=== PATIENT | female | born 1975 ===

== ENCOUNTER → 2020-01-24 12:43 | Outpatient (BNVA) | payer MEDICAID, SELFPAY | PROVIDERS: Visit Provider Obstetrics & Gynecology | DX: N83.292 Other ovarian cyst, left side (principal); Z97.5 Presence of (intrauterine) contraceptive device | CPT/HCPCS: 99213 ==

== ENCOUNTER 2020-02-08 08:57 | Outpatient (REF) | payer MEDICAID, SELFPAY ==
[2020-02-12 19:07] LABS: CA-125 24 U/mL (<35)
== END 2020-02-08 08:58 | disposition home or self-care (01) ==
LOC: HO.LAB 08:57
PROVIDERS: PCP Internal Medicine Geriatric Medicine; Visit Provider Obstetrics & Gynecology
DX: K80.20 Calculus of gallbladder without cholecystitis without obstruction (principal); F17.200 Nicotine dependence, unspecified, uncomplicated
CPT/HCPCS: 86304; 99204

== ENCOUNTER → 2020-03-05 08:48 | Outpatient (REF) | payer MEDICAID, SELFPAY ==
--- NOTE | 2020-03-05 | NM_ITS ---
BILIARY TRACT IMAGING STUDY CLINICAL INDICATION: Calculus of gallbladder without cholecystitis or obstruction. PROCEDURE: Scintillation camera images were obtained over the abdomen for an observation of 60 minutes following the intravenous administration of 5 millicuries technetium 99m Mebrofenin. COMPARISON: No previous biliary scan is available for comparison. Abdominal ultrasound dated 01/15/2020 is available for comparison.. FINDINGS: There is good concentration of activity in the liver by 5 minutes post injection. Biliary activity is well visualized by 13 minutes, and there is good visualization of small bowel activity by 35 minutes. The gallbladder is well visualized by 25 minutes. NM/NM hepatobiliary wo pharm IMPRESSION: Normal biliary scan. Visualization of the gallbladder is evidence of a patent cystic duct and strong evidence against the diagnosis of acute cholecystitis. The common bile duct is patent. Liver function appears normal.
== END ==
LOC: HO.NUCMED 08:48
PROVIDERS: PCP Internal Medicine Geriatric Medicine; Visit Provider Surgery
DX: K80.20 Calculus of gallbladder without cholecystitis without obstruction (principal)
CPT/HCPCS: 78226; A9537

== ENCOUNTER → 2020-05-13 10:01 | Outpatient (BNVA) | payer MEDICAID, SELFPAY | PROVIDERS: Visit Provider Internal Medicine Gastroenterology ==

== ENCOUNTER 2020-08-28 09:19 | Day surgery (SDC) | payer MEDICAID, SELFPAY ==
[2020-06-20 10:39] VITALS: BMI 28.8
[2020-06-20 12:41] VITALS: BMI 28.8
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
[2020-08-28 09:21] VITALS: BP 106/64; PULSE 74; RESP 18; TEMP 36.1; O2SAT 97
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
[2020-08-28] MEDS: Lactated Ringers 1,000 ML 100 ML IVCONT (09:43)
[2020-08-28 09:46] LABS: UPreg QC Valid YES; Urine Pregnancy NEGATIVE (NEGATIVE)
--- NOTE | 2020-08-28 10:24 | P.OP_ITS ---
Operative Note Operative Note Date of Service: 08/28/20 Narrative: Operative Information Procedure Description: EGD, Colonoscopy FLEXIBLE TRANSORAL UPPER GASTROINTESTINAL ENDOSCOPY AND COLONOSCOPY PROCEDURE NOTE UPPER ENDOSCOPY Consent: Indications for the procedure and potential complications of bleeding, perforation, reaction to medications and missed diagnosis were discussed with the patient and informed consent was obtained. Instrument: Olympus GIF H 190 J mid size upper endoscope Monitoring: Vital signs and clinical assessment, continuous EKG monitoring, Pulse oximetry, Carbon Dioxide monitoring and blood pressure monitoring were done throughout the procedure. Procedure: The patient was placed in the left lateral decubitis position and pre-procedure medications were administered and a bite block was placed. The endoscope was inserted into the mouth and advanced under direct vision to the third part of duodenum. A careful inspection was made as the upper endoscope was withdrawn including a retroflexed examination of the proximal stomach; Findings and interventions are described below. Findings: Larynx:normal Esophagus: GE junction at 35 cm, diaphragm hiatus at 35 cm, normal mucosa, random esophagus bx taken Stomach: Patchy erosive gastritis at antrum. Biopsies were obtained. Grade 2 flap valve on retroflexed examination of the cardia. Duodenum: Normal bulb and descending duodenum, bx taken Intervention: Biopsies as noted above COLONOSCOPY Instrument: Olympus variable stiffness pediatric scope 190L Colonoscopy Monitoring: Vital signs and clinical assessment, continuous EKG monitoring, Pulse oximetry, Carbon Dioxide monitoring and blood pressure monitoring were done throughout the procedure. Colon withdrawal time was 18 minutes. Procedure: The patient was placed in the left lateral decubitis position and pre-procedure medications were administered. After a digital rectal examination of the ano-rectum, the video colonoscope was inserted into the rectum and advanced through the colon to the cecum The colonoscope was slowly withdrawn in a retrograde panoramic fashion and the colon mucosa was carefully examined including a retroflexed view of the rectum. Findings and interventions are described below. Procedure Difficulty:hard due to looping and poor prep, colon somewhat redundant as well Findings: Terminal Ileum-not seen Cecum:normal Ascending Colon: normal Transverse Colon -normal Descending Colon:normal Sigmoid Colon: normal Rectum: Retroflexion with small internal hemorrhoids, grade I Anorectum - normal RANDOM COLON BX Taken Colon preparation: [place] Bowel Preparation Scale Right colon; 1 Transverse colon: 1 Left colon; 1 (0 = Unprepared colon segment with mucosa not seen due to solid stool that cannot be cleared. 1 = Portion of mucosa of the colon segment seen, but other areas of the colon segment not well seen due to staining, residual stool and/or opaque liquid. 2 = Minor amount of residual staining, small fragments of stool and/or opaque liquid, but mucosa of colon segment seen well. 3 = Entire mucosa of colon segment seen well with no residual staining, small fragments of stool or opaque liquid) Impression and Post Procedure Diagnosis: Endoscopy Findings: erosive gastritis Colonoscopy Findings: internal hemorrhoids poor prep Plan: Await Pathology results Repeat Colonoscopy in 6-12 months due to poor prep (compliance with diet and prep instructions needs reinforcement) High fiber diet leaflet avoid straining at stool, Above findings were reviewed with the patient and relevant handouts were provided if indicated.
--- NOTE | 2020-08-28 10:24 | P.BOP_ITS ---
Brief Operative Note Date of Service: 08/28/20 Pre-op diagnosis: abdo pain, post prandial urgency Post-op diagnosis: same Procedure: see op note Surgeon: Ernesto Burris MD Anesthesia: MAC Was an Priming Machine Operator used for this Procedure?: No Estimated blood loss (mL): 0 Condition: stable Disposition: PACU
[2020-08-28 11:31] VITALS: BP 124/77; PULSE 79; RESP 18; TEMP 36.4; O2SAT 100
[2020-08-28 11:48] VITALS: BP 122/65; PULSE 60; RESP 17; TEMP 36.4; O2SAT 100
== END 2020-08-28 12:34 | disposition home or self-care (01) ==
PROVIDERS: Nurse Practitioner; PCP Internal Medicine Geriatric Medicine; Visit Provider Internal Medicine Gastroenterology
PROC: (CPT 45380; principal; 2020-08-28 10:50)
DX: Z12.11 Encounter for screening for malignant neoplasm of colon (principal); K64.0 First degree hemorrhoids; K29.50 Unspecified chronic gastritis without bleeding; B96.81 Helicobacter pylori [H. pylori] as the cause of diseases classified elsewhere; Z90.81 Acquired absence of spleen; F17.210 Nicotine dependence, cigarettes, uncomplicated; Z79.899 Other long term (current) drug therapy; K44.9 Diaphragmatic hernia without obstruction or gangrene
CPT/HCPCS: 45380; 43239; 81025; 88305; 88342; J2405; J3010

== ENCOUNTER 2020-09-11 08:27 | Outpatient (REF) | payer MEDICAID, SELFPAY ==
--- NOTE | ~2020-09-11 | MM_ITS ---
EXAMINATION: MM SCREENING DIGITAL BREAST TOMOSYNTHESIS, BILATERAL CLINICAL INFORMATION: Screening. Asymptomatic. The lifetime risk of breast cancer based on the Tyrer-Cuzick Model is 7%. COMPARISON: Mammography: 03/30/2019, 11/02/2017 TECHNIQUE: Digital breast tomosynthesis is performed in both the craniocaudal and mediolateral oblique views along with computer-aided detection (CAD). Synthesized 2D images are generated from the tomosynthesis. FINDINGS: The breasts are heterogeneously dense, which may obscure small masses (ACR BI-RADS breast composition Category c). Breast tissue composition borders on average fibroglandular. There is fibronodular parenchymal pattern similar to prior studies. Smooth nodular asymmetry anterior medial right breast on CC view is stable from prior study. There is no interval mass or architectural abnormality or developing density. No suspicious calcifications. Again, there are grouped dermal calcifications left breast upper outer quadrant and left breast posterior lower inner quadrant. No significant changes from prior exams. MM/MM tomosynthesis screening BI IMPRESSION: No mammographic evidence of malignancy. ASSESSMENT: BI-RADS 2: Benign RECOMMENDATION: Routine annual mammography screening. This patient's information was entered into a reminder system with a target due date for their next mammogram.
== END 2020-09-11 08:28 | disposition home or self-care (01) ==
LOC: HO.MAMMO 08:27
PROVIDERS: Visit Provider Advanced Practice Midwife
DX: Z12.31 Encounter for screening mammogram for malignant neoplasm of breast (principal)
CPT/HCPCS: 77063; 77067

== ENCOUNTER → 2020-09-16 10:00 | Outpatient (BNVA) | payer MEDICAID, SELFPAY | PROVIDERS: PCP Internal Medicine Geriatric Medicine; Visit Provider Internal Medicine Gastroenterology ==

== ENCOUNTER 2021-01-12 09:13 | Outpatient (REF) | payer MEDICAID, SELFPAY ==
--- NOTE | ~2021-01-12 | US_ITS ---
EXAMINATION: US PELVIC AND TRANSVAGINAL CLINICAL INFORMATION: Left ovarian cyst. COMPARISON: Previous pelvic ultrasound December 2019 TECHNIQUE: Ultrasound of the pelvis is performed using both transabdominal and transvaginal transducers along with Doppler. Transvaginal imaging is performed due to inadequate visualization transabdominally. FINDINGS: The uterus is anteverted and measures 8.3 x 4.7 x 5.2 cm in dimension. There is an IUD in the uterus in satisfactory position. The endometrium does not appear thickened. There are small nabothian cysts in the cervix. No focal uterine lesion is seen. The right ovary measures 4.6 x 2.2 x 2.7 cm. There is a 1.9 x 1.2 x 1.7 cm complex right ovarian cyst with thickened echogenic wall and internal echoes. There is a second 2.4 x 1.7 x 2.6 cm question adnexal or paraovarian hypoechoic lesion probably representing a complex cyst with low-level internal echoes. The left ovary is normal-appearing and measures 2.6 x 2 x 2.5 cm. There is no fluid in the pelvis. US/US pelvic and transvaginal IMPRESSION: IUD in the uterus in satisfactory position. No left ovarian cyst seen. Two probable complex right ovarian or adnexal cysts, the largest measuring 2.6 x 2 x 2.5 cm.
== END 2021-01-12 09:14 | disposition home or self-care (01) ==
LOC: HO.HMGCX 09:13
PROVIDERS: PCP Internal Medicine Geriatric Medicine; Visit Provider Obstetrics & Gynecology
DX: N83.292 Other ovarian cyst, left side (principal)
CPT/HCPCS: 76830; 76856

== ENCOUNTER 2021-01-15 13:48 | Outpatient (REF) | payer MEDICAID, SELFPAY ==
[2021-01-16 02:48] LABS: CT PCR NOT DETECTED (Not Detect.); NG PCR NOT DETECTED (Not Detect.)
[2021-01-16 08:47] LABS: BV Int Neg Control Negative (Negative); BV Int Pos Control Positive (Positive)
[2021-01-20 17:06] LABS: HPV mRNA E6/E7 rflx Not Detected (Not Detected)
== END 2021-01-15 13:49 | disposition home or self-care (01) ==
LOC: HO.LAB 13:48
PROVIDERS: PCP Internal Medicine Geriatric Medicine; Visit Provider Advanced Practice Midwife
DX: Z01.411 Encounter for gynecological examination (general) (routine) with abnormal findings (principal); Z11.51 Encounter for screening for human papillomavirus (HPV); Z11.3 Encounter for screening for infections with a predominantly sexual mode of transmission; R10.2 Pelvic and perineal pain; N89.8 Other specified noninflammatory disorders of vagina; Z20.2 Contact with and (suspected) exposure to infections with a predominantly sexual mode of transmission
CPT/HCPCS: 81003; 87480; 87491; 87510; 87591; 87624; 87660; 88142

== ENCOUNTER → 2021-01-20 12:48 | Outpatient (BNVA) | payer MEDICAID, SELFPAY | PROVIDERS: Visit Provider Obstetrics & Gynecology ==

== ENCOUNTER 2021-01-22 15:53 | Outpatient (REF) | payer MEDICAID, SELFPAY ==
[2021-01-22 16:37] LABS: Imm Gran Abs Auto 0.03 X10*3/uL (0.00-0.03); Imm Gran Pct Auto 0.3 % (0.0-0.4); Mean Platelet Volume 9.8 fL (9.4-12.3); Neutrophils Percent Auto 46.1 % (45-73); SCAN SMEAR FLAG 1
[2021-01-22 16:42] LABS: Basophils Absolute Auto 0.1 X10*3/uL (0.0-0.2); Basophils Percent Auto 0.5 % (0-2); Eosinophils Absolute Auto 0.2 X10*3/uL (0.0-0.4); Eosinophils Percent Auto 1.5 % (0-4); Hematocrit 40.4 % (37-47); Hemoglobin 13.3 g/dl (12.0-16.0); Lymphocytes Absolute Auto 4.8 X10*3/uL (1.2-4.9); Lymphocytes Percent Auto 44.7 % (20-40); Mean Corpuscular HGB Conc 32.9 g/dl (31.0-35.0); Monocytes Absolute Auto 0.7 X10*3/uL (0.1-1.2); Monocytes Percent Auto 6.9 % (2-11); Neutrophils Absolute Auto 4.9 X10*3/uL (2.0-8.3); Platelet Count 376 X10*3/uL (160-400); Red Blood Count 4.44 X10*6/uL (4.20-5.50); White Blood Count 10.6 X10*3/uL (4.8-10.8)
[2021-01-22 16:48] LABS: MANUAL DIFF FLAG NO
[2021-01-22 16:59] LABS: Alanine Aminotransferase 13 U/L (0-31); Albumin Level 4.6 g/dL (3.5-5.0); Alkaline Phosphatase 91 U/L (39-117); Anion Gap 13 (12-20); Aspartate Amino Transferase 17 U/L (5-31); Bilirubin Total 0.9 mg/dL (0.0-1.0); Blood Urea Nitrogen 15 mg/dL (9-16); Calcium 9.4 mg/dL (8.4-10.2); Carbon Dioxide 24 mmol/L (22-29); Chloride 106 mmol/L (96-108); Estimated Glomerular Filt Rate > 60; Glucose Random 86 mg/dL (60-115); Sodium 139 mmol/L (135-145); Total Protein 7.5 g/dL (6.5-8.0)
[2021-01-22 17:18] LABS: TSH reflex Free T4 0.71 uIU/mL (0.32-4.0)
[2021-01-23 08:13] LABS: HBc Num1 0.07 S/CO (0.00-0.79); HIV AB/AG Nonreactive (Nonreactive); HIV Num 1 0.08 S/CO (0.00-0.99); Hepatitis B Core Antibody Nonreactive (Nonreactive); ~HepC Num1 0.05 S/CO (0.00-0.79); ~Hepatitis C Antibody Nonreactive (Nonreactive)
[2021-01-23 08:21] LABS: Syphilis Screen Nonreactive (Nonreactive)
[2021-01-24 05:11] LABS: CA-125 19 U/mL (<35)
[2021-01-28 07:21] LABS: IgA 180 mg/dL (47-310); IgG 1195 mg/dL (600-1640); IgM 25 mg/dL (50-300)
[2021-01-28 16:06] LABS: Histamine Plasma <1.5 ng/mL (< OR = 1.8)
[2021-01-29 10:06] LABS: Transglutaminase Ab IgG <1.0 U/mL; Transglutaminase IgA <1.0 U/mL
== END 2021-01-22 15:54 | disposition home or self-care (01) ==
LOC: HO.LAB 15:53
PROVIDERS: Internal Medicine Gastroenterology; Absent Provider Obstetrics & Gynecology; PCP Internal Medicine Geriatric Medicine; Visit Provider Advanced Practice Midwife
DX: N83.292 Other ovarian cyst, left side (principal); K59.01 Slow transit constipation; R10.12 Left upper quadrant pain; Z20.2 Contact with and (suspected) exposure to infections with a predominantly sexual mode of transmission
CPT/HCPCS: 36415; 80053; 82784; 83088; 83516; 83520; 84443; 85025; 86304; 86704; 86780; 86803; 87389

== ENCOUNTER 2021-02-11 15:28 | Outpatient (REF) | payer MEDICAID, SELFPAY ==
--- NOTE | ~2021-02-11 | XR_ITS ---
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 COMPARISON: 12/15/2016 TECHNIQUE: 2 views of the chest were obtained. FINDINGS: The lungs are well expanded. There is no focal consolidation, edema, or effusion. No pneumothorax. The cardiomediastinal silhouette is within normal limits. No acute osseous abnormality. XR/XR chest 2V IMPRESSION: Clear lungs.
== END 2021-02-11 15:29 | disposition home or self-care (01) ==
LOC: HO.XRAY 15:28
PROVIDERS: PCP Internal Medicine Geriatric Medicine; Visit Provider Internal Medicine Geriatric Medicine
DX: R76.12 Nonspecific reaction to cell mediated immunity measurement of gamma interferon antigen response without active tuberculosis (principal); Z22.7 Latent tuberculosis
CPT/HCPCS: 71046

== ENCOUNTER → 2021-03-05 14:58 | Outpatient (BNVA) | payer MEDICAID, SELFPAY | PROVIDERS: PCP Internal Medicine Geriatric Medicine; Visit Provider Surgery | DX: L72.0 Epidermal cyst (principal) | CPT/HCPCS: 99212 ==

== ENCOUNTER 2021-03-17 11:32 | Outpatient (REF) | payer MEDICAID, SELFPAY ==
[2021-03-18 11:52] LABS: H Pylori Breath Test Positive (Negative)
== END 2021-03-17 11:33 | disposition home or self-care (01) ==
LOC: HO.LNP 11:32
PROVIDERS: PCP Internal Medicine Geriatric Medicine; Referring Provider Internal Medicine Geriatric Medicine; Visit Provider Internal Medicine Gastroenterology
DX: Z01.818 Encounter for other preprocedural examination (principal)
CPT/HCPCS: 83013; 99212

== ENCOUNTER 2021-04-13 10:48 | Outpatient (REF) | payer MEDICAID, SELFPAY ==
--- NOTE | ~2021-04-13 | US_ITS ---
EXAMINATION: US PELVIS CLINICAL INFORMATION: Other ovarian cyst, unspecified side COMPARISON: Previous pelvic ultrasound December 2019 and December 2020 TECHNIQUE: Ultrasound of the pelvis is performed using both transabdominal and transvaginal transducers along with Doppler. Transvaginal imaging is performed due to inadequate visualization transabdominally. FINDINGS: The uterus is anteverted and measures 9.4 x 4.3 x 5.6 cm in dimension. There is an IUD in the uterus in satisfactory position. Endometrial thickness is normal measuring 0.5 cm. No focal uterine lesion is seen. There are nabothian cysts in the cervix. The right ovary measures 4.2 x 1.9 x 3.4 cm. There are several simple right ovarian cysts. The largest measures 1.5 x 1.3 x 1.2 cm. There is a 2.5 x 1.7 x 2.2 cm hypoechoic solid-appearing area. This is similar to December 2020 exam when this area measured 2.4 x 1.7 x 2.6 cm. This is a new finding compared to December 2019 exam. The left ovary is normal-appearing and measures 3.9 x 2.1 x 2.3 cm. There is no fluid in the pelvis. US/US pelvic and transvaginal IMPRESSION: IUD in the uterus in satisfactory position. Stable hypoechoic solid appearing lesion in the right ovary measuring 2.5 x 1.7 x 2.2 cm compared to recent exam December 2020.
== END 2021-04-13 10:49 | disposition home or self-care (01) ==
LOC: HO.HMGCX 10:48
PROVIDERS: PCP Internal Medicine Geriatric Medicine; Visit Provider Obstetrics & Gynecology
DX: N83.299 Other ovarian cyst, unspecified side (principal)
CPT/HCPCS: 76830; 76856

== ENCOUNTER → 2021-04-27 15:56 | Outpatient (BNVA) | payer MEDICAID, SELFPAY | PROVIDERS: PCP Internal Medicine Geriatric Medicine; Visit Provider Obstetrics & Gynecology ==

== ENCOUNTER 2021-06-03 13:45 | Outpatient (REF) | payer MEDICAID, SELFPAY ==
--- NOTE | ~2021-06-03 | MR_ITS ---
EXAMINATION: MRI PELVIS WITH AND WITHOUT CONTRAST CLINICAL INFORMATION: Reason for Exam [id number] - Other ovarian cyst, right side COMPARISON: 04/13/2021 TECHNIQUE: Multiple routine MRI sequences through the pelvis were obtained on a high-field 1.5 Halina MRI before and after the uneventful administration of 7.5 mL of Gadavist gadolinium-based IV contrast. FINDINGS: UTERUS: The uterus is anteverted and measures 8.8 x 4.4 x 6.1 cm ([id number] x anterior-posterior x transverse). In IUD is seen centrally in the endometrial canal. There is a suggestion of an arcuate uterine configuration with a smooth outer fundal contour and approximately 1 cm indentation of the endometrial canal at the fundus, for example series 7 image 17/28. Normal endometrial thickness, 0.4 cm. Junctional zone is normal in signal and thickness. No focal uterine mass seen. CERVIX: Numerous incidentally noted nabothian cysts are present. VAGINA: Normal; no mass seen. RIGHT OVARY: The right ovary is likely identified in series 7 image 14/28 and coronal image 13/28. The ovary itself measures 1.8 x 1.3 x 1.8 cm. Medial to the left ovary there 2 well-circumscribed lobular masses (or a bilobed single mass) measuring 2.0 x 1.4 x 1.4 cm and 2.7 x 1.5 x 2.5 cm. These are separate from the gas and stool-containing adjacent rectosigmoid colon. There is marked dark T2 signal throughout with intermediate T1 signal and minimal enhancement. LEFT OVARY: The left ovary measures 3.5 x 2.1 x 2.2 cm. Normal benign physiologic follicular cysts requiring no imaging follow-up are seen. No suspicious or concerning adnexal mass. KIDNEYS: Two normally positioned kidneys are seen. No hydronephrosis. BLADDER: Urinary bladder normal. PELVIC FREE FLUID: Trace physiologic free fluid is present. LYMPH NODES: No pathologically enlarged lymph nodes. OSSEOUS STRUCTURES: No acute or suspicious osseous abnormalities. MR/MR pelvis wo/w con IMPRESSION: Likely corresponding to the findings on prior ultrasound there are 2 adjacent well-circumscribed right adnexal masses (or a single bilobed mass) with marked dark T2 signal suggesting fibrous tissue. These could represent leiomyomata although no myomas are seen uterus. The appearance is typical for a solid fibrous adnexal mass such as a fibroma or fibrothecoma, less likely a cystadenoma fibroma.
== END 2021-06-03 13:46 | disposition home or self-care (01) ==
LOC: HO.MRI 13:45
PROVIDERS: Visit Provider Obstetrics & Gynecology
DX: N83.291 Other ovarian cyst, right side (principal)
CPT/HCPCS: 72197; A9585

== ENCOUNTER → 2021-06-04 15:55 | Outpatient (BNVA) | payer MEDICAID, SELFPAY | PROVIDERS: Visit Provider Obstetrics & Gynecology ==

== ENCOUNTER 2021-11-26 11:45 | Outpatient (REF) | payer MEDICAID, SELFPAY ==
--- NOTE | ~2021-11-26 | MM_ITS ---
EXAMINATION: MM SCREENING DIGITAL BREAST TOMOSYNTHESIS, BILATERAL CLINICAL INFORMATION: Screening. Asymptomatic. The lifetime risk of breast cancer based on the Tyrer-Cuzick Model is 8%. COMPARISON: Mammography: September 11, 2020 and studies dating back to October 11, 2014 TECHNIQUE: Digital breast tomosynthesis is performed in both the craniocaudal and mediolateral oblique views along with computer-aided detection (CAD). Synthesized 2D images are generated from the tomosynthesis. FINDINGS: The breasts are heterogeneously dense, which may obscure small masses (ACR BI-RADS breast composition Category c). There are no new significant masses, abnormal calcifications, or other abnormalities. There is stability of calcifications in density about the deep lateral aspect of the left breast. A few stable circumscribed densities are present. MM/MM tomosynthesis screening BI IMPRESSION: There are no significant changes from prior study. ASSESSMENT: BI-RADS 2: Benign RECOMMENDATION: Routine annual mammography screening. This patient's information was entered into a reminder system with a target due date for their next mammogram.
== END 2021-11-26 11:46 | disposition home or self-care (01) ==
LOC: HO.MAMMO 11:45
PROVIDERS: Visit Provider Internal Medicine Geriatric Medicine
DX: Z12.31 Encounter for screening mammogram for malignant neoplasm of breast (principal)
CPT/HCPCS: 77063; 77067

== ENCOUNTER → 2021-11-27 10:23 | Outpatient (BNVA) | payer MEDICAID, SELFPAY | PROVIDERS: PCP Internal Medicine Geriatric Medicine; Referring Provider Internal Medicine Geriatric Medicine; Visit Provider Surgery | DX: L72.0 Epidermal cyst (principal) | CPT/HCPCS: 99212 ==

== ENCOUNTER 2022-01-14 10:54 | Outpatient (REF) | payer MEDICAID, SELFPAY ==
[2022-01-14 10:56] VITALS: BMI 26.2
[2022-01-14 11:00] VITALS: BP 99/71; PULSE 78; RESP 16; TEMP 36.3; O2SAT 97
[2022-01-14 11:40] VITALS: BP 112/70; PULSE 78; RESP 16; O2SAT 97
--- NOTE | 2022-01-18 12:30 | P.OP_ITS ---
Operative Note Operative Note Date of Service: 01/14/22 Narrative: Preoperative diagnosis: Sebaceous cyst x2 of back Postoperative diagnosis: Same Procedure: Excision of sebaceous cyst x2 of back Surgeon: Blayne Cardona MD Meat Boner And Slicer: ELVIRA Novoa Anesthesia: Local lidocaine 2% with epinephrine Indications for procedure: 46-year-old female patient presenting with 2 small but painful epidermal inclusion cyst 1 located in the mid back in the midline and a 2nd located to the right of midline at approximately the same level. The midline lesion measured approximately 1.5 cm in the more lateral lesion on the right side measured approximately 1 cm. Neither lesion was acutely infected. Operative findings: 1.5 cm sebaceous cyst of mid back, 1 cm sebaceous cyst of right mid back. Specimen: Epidermal inclusion cyst (sebaceous cyst) x2 Estimated blood loss: 2 mL Complications: None Procedure details: Patient was brought to the minor surgery suite and placed in a prone position. The site of surgery confirmed by the patient in the back as noted above. After assuring informed consent the skin was prepped with Betadine and draped in a sterile fashion. Local anesthesia was then infiltrated around both lesions. Beginning in the midline lesion elliptical incision was then created oriented transversely. This was carried out through subcutaneous tissue and around the cyst wall. The cyst was then completely excised and passed off the table. This was subsequently sent to pathology for further examination. After assuring adequate hemostasis the dermis was reapproximated using interrupted 3-0 Polysorb sutures. Skin was then closed using interrupted 4-0 nylon sutures. Attention was then directed to the right mid back lesion again an elliptical incision was created oriented transversely. This was then carried down through subcutaneous tissue and around the cyst wall. The lesion was completely excised and sent to pathology for further examination. After assuring adequate hemostasis the skin was reapproximated using interrupted 4-0 nylon sutures. Sterile dressings consisting of 2 x 2 gauze and Tegaderm were then applied. The patient tolerated the procedure well. She was discharged to home in stable condition.
== END 2022-01-14 10:55 | disposition home or self-care (01) ==
LOC: HO.MS 10:54
PROVIDERS: PCP Internal Medicine Geriatric Medicine; Visit Provider Surgery
PROC: (CPT 11402; principal; 2022-01-14 11:00)
DX: D22.5 Melanocytic nevi of trunk (principal); L72.0 Epidermal cyst
CPT/HCPCS: 11402; 11401; 88304; 88305

== ENCOUNTER 2022-04-08 10:53 | Outpatient (REF) | payer MEDICAID, SELFPAY | END 2022-04-08 10:54 | disposition home or self-care (01) | LOC: HO.LNP 10:53 | PROVIDERS: Visit Provider Advanced Practice Midwife | DX: Z13.89 Encounter for screening for other disorder (principal) ==

== ENCOUNTER 2022-04-08 11:12 | Outpatient (REF) | payer MEDICAID, SELFPAY ==
[2022-04-08 13:10] LABS: Thyroid Stimulating Hormone 0.77 uIU/mL (0.32-4.0)
[2022-04-08 15:14] LABS: CT PCR NOT DETECTED (Not Detect.); NG PCR NOT DETECTED (Not Detect.)
[2022-04-09 05:16] LABS: Syphilis Screen Nonreactive (Nonreactive)
[2022-04-09 07:32] LABS: HBc Num1 0.07 S/CO (0.00-0.79); HIV AB/AG Nonreactive (Nonreactive); HIV Num 1 0.06 S/CO (0.00-0.99); Hepatitis B Core Antibody Nonreactive (Nonreactive); ~HepC Num1 0.04 S/CO (0.00-0.79); ~Hepatitis C Antibody Nonreactive (Nonreactive)
[2022-04-09 12:28] LABS: BV Int Neg Control Negative (Negative); BV Int Pos Control Positive (Positive)
[2022-04-11 01:00] LABS: Prolactin 6.8 ng/mL
[2022-04-11 01:03] LABS: DHEA Sulfate 223 mcg/dL (15-205)
== END 2022-04-08 11:13 | disposition home or self-care (01) ==
LOC: HO.LAB 11:12
PROVIDERS: PCP Internal Medicine Geriatric Medicine; Visit Provider Advanced Practice Midwife
DX: Z01.419 Encounter for gynecological examination (general) (routine) without abnormal findings (principal); Z11.4 Encounter for screening for human immunodeficiency virus [HIV]; L68.0 Hirsutism; Z20.2 Contact with and (suspected) exposure to infections with a predominantly sexual mode of transmission
CPT/HCPCS: 82627; 83498; 84146; 84402; 84403; 84443; 86704; 86780; 86803; 87389; 87480; 87491; 87510; 87591; 87660

== ENCOUNTER 2022-05-07 11:38 | Outpatient (REF) | payer MEDICAID, SELFPAY ==
[2022-05-14 13:08] LABS: Testosterone, Total 35 ng/dL (2-45)
== END 2022-05-07 11:39 | disposition home or self-care (01) ==
LOC: HO.LAB 11:38
PROVIDERS: PCP Internal Medicine Geriatric Medicine; Visit Provider Advanced Practice Midwife
DX: L68.0 Hirsutism (principal)
CPT/HCPCS: 36415; 84402; 84403

== ENCOUNTER → 2022-05-13 10:09 | Outpatient (BNVA) | payer MEDICAID, SELFPAY | PROVIDERS: PCP Internal Medicine Geriatric Medicine; Visit Provider Advanced Practice Midwife | DX: Z71.2 Person consulting for explanation of examination or test findings (principal); L68.0 Hirsutism | CPT/HCPCS: 99212 ==

== ENCOUNTER → 2022-07-30 16:13 | Outpatient (BNVA) | payer MEDICAID, SELFPAY | PROVIDERS: PCP Internal Medicine Geriatric Medicine; Visit Provider Internal Medicine Endocrinology, Diabetes & Metabolism | DX: L68.0 Hirsutism (principal) | CPT/HCPCS: 99202 ==

== ENCOUNTER 2022-10-06 18:14 | Emergency (ER) | payer OTHER, MEDICAID, SELFPAY ==
[2022-10-06 18:21] VITALS: BP 103/73; PULSE 73; RESP 18; TEMP 37.2; O2SAT 98; BMI 29.1
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
--- NOTE | 2022-10-06 18:26 | ECG_ITS ---
Test Reason : SOB,CHEST PAIN,DIZZINESS Blood Pressure : / mmHG Vent. Rate : 067 BPM Atrial Rate : 067 BPM P-R Int : 154 ms QRS Dur : 078 ms QT Int : 400 ms P-R-T Axes : 067 028 038 degrees QTc Int : 422 ms Normal sinus rhythm Normal ECG No previous ECGs available Referred By: Lenka Hebert Electronically Signed By:KIMBER NOEL MD
[2022-10-06 18:50] LABS: Basophils Absolute Auto 0.1 X10*3/uL (0.0-0.2); Basophils Percent Auto 0.5 % (0-2); Eosinophils Absolute Auto 0.2 X10*3/uL (0.0-0.4); Eosinophils Percent Auto 1.4 % (0-4); Hematocrit 38.9 % (37.0-47.0); Hemoglobin 12.7 g/dl (12.0-16.0); Imm Gran Abs Auto 0.04 X10*3/uL (0.00-0.03); Imm Gran Pct Auto 0.3 % (0.0-0.4); Lymphocytes Absolute Auto 5.3 X10*3/uL (1.2-4.9); MANUAL DIFF FLAG SCAN; Mean Corpuscular HGB Conc 32.6 g/dl (31.0-35.0); Mean Corpuscular Hemoglobin 30.2 pg (27.0-33.0); Mean Corpuscular Volume 92.4 fL (80.0-98.0); Mean Platelet Volume 9.7 fL (9.4-12.3); Monocytes Absolute Auto 0.9 X10*3/uL (0.1-1.2); Monocytes Percent Auto 7.2 % (2-11); Neutrophils Absolute Auto 6.4 x10*3/uL (2.0-8.3); Neutrophils Percent Auto 49.6 % (45-73); Platelet Count 395 X10*3/uL (160-400); Red Blood Count 4.21 X10*6/uL (4.20-5.50); Red Cell Distribution Width 12.1 % (11.0-16.0); SCAN SMEAR FLAG 1; White Blood Count 12.9 X10*3/uL (4.8-10.8)
[2022-10-06 19:06] LABS: Alanine Aminotransferase 10 U/L (0-31); Albumin Level 3.9 g/dL (3.5-5.0); Alkaline Phosphatase 94 U/L (39-117); Anion Gap 11 (12-20); Aspartate Amino Transferase 14 U/L (5-31); Bilirubin Direct 0.1 mg/dL (0.0-0.5); Bilirubin Total 0.4 mg/dL (0.0-1.0); Blood Urea Nitrogen 19 mg/dL (9-16); Calcium 9.3 mg/dL (8.4-10.2); Carbon Dioxide 24 mmol/L (22-29); Chloride 109 mmol/L (96-108); Creatinine Clr Calc Pharmacy 100.6; Estimated Glomerular Filt Rate > 60; Glucose Random 117 mg/dL (60-115); Magnesium 1.9 mg/dL (1.6-2.6); Potassium 3.9 mmol/L (3.3-5.1); Sodium 140 mmol/L (135-145); Total Protein 7.1 g/dL (6.5-8.0)
[2022-10-06 19:09] LABS: SLIDE REVIEW VERIFIED
[2022-10-06 19:34] VITALS: BP 112/76; PULSE 64
[2022-10-06 19:35] VITALS: BP 102/61; BP 114/66; PULSE 58; PULSE 61
[2022-10-06 19:37] VITALS: BP 116/72; PULSE 60; RESP 16; TEMP 36.2; O2SAT 98
--- NOTE | 2022-10-06 19:37 | MHC.EDTECH ---
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
== END 2022-10-06 20:49 | disposition home or self-care (01) ==
PROVIDERS: Physician Assistant; Emergency Provider Emergency Medicine; PCP Internal Medicine Geriatric Medicine
DX: F41.9 Anxiety disorder, unspecified (principal); R42 Dizziness and giddiness; R06.02 Shortness of breath
CPT/HCPCS: 36415; 80048; 80076; 83735; 85025; 93005; 99283; 99284

== ENCOUNTER 2023-04-29 15:52 | Outpatient (REF) | payer OTHER, SELFPAY | END 2023-04-29 15:53 | disposition home or self-care (01) | LOC: HO.HHCX 15:52 | PROVIDERS: Visit Provider Emergency Medicine | DX: M54.50 Low back pain, unspecified (principal); M79.18 Myalgia, other site; M54.2 Cervicalgia; Z91.81 History of falling | CPT/HCPCS: 72040; 72100; 72170; 72220 ==

== ENCOUNTER 2023-05-19 09:12 | Outpatient (AMB) | payer OTHER, SELFPAY ==
[2023-05-19 09:22] VITALS: BP 104/60; BMI 28.5
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
== END 2023-05-19 10:16 | disposition home or self-care (01) ==
LOC: HO.HWS 09:12
PROVIDERS: PCP Internal Medicine Geriatric Medicine; Visit Provider Advanced Practice Midwife
DX: N92.6 Irregular menstruation, unspecified (principal); Z01.419 Encounter for gynecological examination (general) (routine) without abnormal findings
CPT/HCPCS: 99396

== ENCOUNTER 2023-05-19 09:12 | Outpatient (REF) | payer OTHER, SELFPAY ==
[2023-05-19 13:43] LABS: CT PCR NOT DETECTED (Not Detect.); NG PCR NOT DETECTED (Not Detect.)
== END 2023-05-19 09:13 | disposition home or self-care (01) ==
LOC: HO.LNP 09:12
PROVIDERS: PCP Internal Medicine Geriatric Medicine; Visit Provider Advanced Practice Midwife
DX: Z01.419 Encounter for gynecological examination (general) (routine) without abnormal findings (principal); N92.6 Irregular menstruation, unspecified; Z20.2 Contact with and (suspected) exposure to infections with a predominantly sexual mode of transmission
CPT/HCPCS: 0353U; 81025

== ENCOUNTER → 2023-06-10 15:45 | Outpatient (BNV) | payer OTHER, SELFPAY | PROVIDERS: PCP Internal Medicine Geriatric Medicine; Visit Provider Radiology Diagnostic Radiology | DX: Z12.31 Encounter for screening mammogram for malignant neoplasm of breast (principal) | CPT/HCPCS: 77063; 77067 ==

== ENCOUNTER 2023-06-10 15:59 | Outpatient (REF) | payer OTHER, SELFPAY | END 2023-06-10 16:00 | disposition home or self-care (01) | LOC: HO.MAMMO 15:59 | PROVIDERS: PCP Internal Medicine Geriatric Medicine; Visit Provider Internal Medicine Geriatric Medicine | DX: Z12.31 Encounter for screening mammogram for malignant neoplasm of breast (principal) | CPT/HCPCS: 77063; 77067 ==

== ENCOUNTER → 2023-06-30 14:18 | Outpatient (BNVA) | payer OTHER, SELFPAY | PROVIDERS: PCP Internal Medicine Geriatric Medicine; Visit Provider Surgery ==

== ENCOUNTER 2023-06-30 14:19 | Outpatient (AMB) | payer OTHER, SELFPAY ==
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
[2023-06-30 14:43] VITALS: BP 127/81; PULSE 75; BMI 29.7
== END 2023-06-30 14:54 | disposition home or self-care (01) ==
PROVIDERS: PCP Internal Medicine Geriatric Medicine; Visit Provider Surgery
DX: L72.0 Epidermal cyst (principal)
CPT/HCPCS: 99213

== ENCOUNTER → 2023-07-15 09:34 | Outpatient (BNVA) | payer OTHER, SELFPAY | PROVIDERS: PCP Internal Medicine Geriatric Medicine; Visit Provider Surgery ==

== ENCOUNTER 2023-07-15 09:59 | Outpatient (REF) | payer OTHER, SELFPAY ==
[2023-07-15 11:28] LABS: HBc Num1 0.08 S/CO (0.00-0.79); HIV AB/AG Nonreactive (Nonreactive); HIV Num 1 0.05 S/CO (0.00-0.99); Hepatitis B Core Antibody Nonreactive (Nonreactive); ~HepC Num1 0.07 S/CO (0.00-0.79); ~Hepatitis C Antibody Nonreactive (Nonreactive)
[2023-07-15 11:29] LABS: Syphilis Screen Nonreactive (Nonreactive)
== END 2023-07-15 10:00 | disposition home or self-care (01) ==
LOC: HO.LAB 09:59
PROVIDERS: Visit Provider Advanced Practice Midwife
DX: Z11.4 Encounter for screening for human immunodeficiency virus [HIV] (principal); Z20.2 Contact with and (suspected) exposure to infections with a predominantly sexual mode of transmission
CPT/HCPCS: 36415; 86704; 86780; 86803; 87389

== ENCOUNTER 2023-07-19 09:10 | Outpatient (REF) | payer OTHER, SELFPAY ==
[2023-07-19 11:54] LABS: MANUAL DIFF FLAG NO
[2023-07-19 12:12] LABS: Basophils Absolute Auto 0.1 X10*3/uL (0.0-0.2); Basophils Percent Auto 0.6 % (0-2); Eosinophils Absolute Auto 0.1 X10*3/uL (0.0-0.4); Eosinophils Percent Auto 1.4 % (0-4); Hematocrit 43.4 % (37.0-47.0); Hemoglobin 13.9 g/dl (12.0-16.0); Imm Gran Abs Auto 0.02 X10*3/uL (0.00-0.03); Imm Gran Pct Auto 0.2 % (0.0-0.4); Lymphocytes Absolute Auto 3.2 X10*3/uL (1.2-4.9); Mean Corpuscular Hemoglobin 30.2 pg (27.0-33.0); Mean Corpuscular Volume 94.1 fL (80.0-98.0); Mean Platelet Volume 9.9 fL (9.4-12.3); Monocytes Absolute Auto 0.8 X10*3/uL (0.1-1.2); Monocytes Percent Auto 8.3 % (2-11); Neutrophils Absolute Auto 4.9 x10*3/uL (2.0-8.3); Neutrophils Percent Auto 54.5 % (45-73); Platelet Count 410 X10*3/uL (160-400); Red Blood Count 4.61 X10*6/uL (4.20-5.50); Red Cell Distribution Width 12.4 % (11.0-16.0)
[2023-07-19 12:22] LABS: Estimated Average Glucose 111 mg/dL; Hemoglobin A1c % 5.5 % (<6.0)
[2023-07-19 13:05] LABS: Anion Gap 12 (12-20); Blood Urea Nitrogen 16 mg/dL (9-16); Carbon Dioxide 27 mmol/L (22-29); Chloride 105 mmol/L (96-108); Estimated Glomerular Filt Rate > 60; Glucose Random 90 mg/dL (60-115); Potassium 3.9 mmol/L (3.3-5.1); Sodium 140 mmol/L (135-145)
[2023-07-19 13:06] LABS: Alanine Aminotransferase 13 U/L (0-31); Albumin Level 4.3 g/dL (3.5-5.0); Alkaline Phosphatase 104 U/L (39-117); Aspartate Amino Transferase 17 U/L (5-31); Bilirubin Direct 0.2 mg/dL (0.0-0.5); Bilirubin Total 0.6 mg/dL (0.0-1.0); Cholesterol 188 mg/dL (<200); HDL Cholesterol 41 mg/dL (>40); LDL Cholesterol Calculated 131 mg/dL (<100); Total Protein 7.6 g/dL (6.5-8.0); Triglycerides 83 mg/dL (<150)
== END 2023-07-19 09:11 | disposition home or self-care (01) ==
LOC: HO.HHCL 09:10
PROVIDERS: Visit Provider Internal Medicine Geriatric Medicine
DX: Z13.220 Encounter for screening for lipoid disorders (principal); Z13.6 Encounter for screening for cardiovascular disorders; Z13.1 Encounter for screening for diabetes mellitus; R53.83 Other fatigue; F32.A Depression, unspecified; Z90.721 Acquired absence of ovaries, unilateral
CPT/HCPCS: 36415; 80048; 80061; 80076; 83036; 85025

== ENCOUNTER 2023-07-20 09:31 | Outpatient (REF) | payer OTHER, SELFPAY | END 2023-07-20 09:32 | disposition home or self-care (01) | LOC: HO.HOSX 09:31 | PROVIDERS: Visit Provider Physical Medicine & Rehabilitation | DX: Z13.89 Encounter for screening for other disorder (principal) ==

== ENCOUNTER 2023-07-28 15:52 | Outpatient (AMB) | payer OTHER, SELFPAY ==
[2023-07-28 15:54] VITALS: BP 98/70; PULSE 95; BMI 29.6
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
== END 2023-07-28 16:30 | disposition home or self-care (01) ==
PROVIDERS: PCP Internal Medicine Geriatric Medicine; Visit Provider Internal Medicine Endocrinology, Diabetes & Metabolism
DX: L68.0 Hirsutism (principal)
CPT/HCPCS: 99213

== ENCOUNTER → 2023-07-28 15:52 | Outpatient (BNVA) | payer OTHER, SELFPAY | PROVIDERS: PCP Internal Medicine Geriatric Medicine; Visit Provider Internal Medicine Endocrinology, Diabetes & Metabolism ==

== ENCOUNTER 2023-08-31 13:23 | Day surgery (SDC) | payer OTHER, SELFPAY ==
[2023-08-31 13:24] VITALS: BP 132/72; PULSE 77; RESP 19; TEMP 36.7; O2SAT 97; BMI 30.3
--- NOTE | 2023-08-31 14:10 | P.OP_ITS ---
Operative Note Operative Note Date of Service: 08/31/23 Narrative: Preoperative diagnosis: Lipoma midback, epidermal inclusion cyst upper mid back Postoperative diagnosis: Same Procedure: Excision of lipoma midback and epidermal inclusion cyst upper mid back Surgeon: Blayne Cardona MD Tent Worker: None Anesthesia: Lidocaine 1% with epinephrine Indications for procedure: 48-year-old female presenting with a palpable soft tissue mass located in the mid back measuring approximately 3 cm in diameter. Reports pain when the lesion is palpated open laying on her back. In addition she has an epidermal inclusion cyst which is causing discomfort located just above this measuring approximately 1.5 cm in diameter. Operative findings: 3 cm lipoma of the midback; 1.5 cm epidermal inclusion cyst without evidence of infection. Specimen: Lipoma mid back, epidermal inclusion cyst upper mid back Estimated blood loss: Less than 2 mL Complications: None Procedure details: Patient was brought to the OR minor surgery suite and placed in a prone position. The site of surgery was confirmed by the patient in the mid back and upper mid back. After assuring informed consent the skin was prepped with Betadine and draped in a sterile fashion. Local anesthesia was then infiltrated around both lesions. Beginning at the lipoma a midline incision was made in longitudinal fashion and carried out through subcutaneous tissue up to the lipoma. A Metzenbaum scissor was then used to excise the lesion from the surrounding subcutaneous tissue. This was passed off the table and sent to pathology for further examination. Wounds were then irrigated with saline solution and suctioned dry. Dermis was then reapproximated using interrupted 3-0 Polysorb suture. Skin was closed using a running subcuticular 4-0 Polysorb suture. Attention was then directed to the upper mid back epidermal inclusion cyst. Elliptical incision in a longitudinal fashion was then created around the cyst wall. This was carried down into the subcutaneous tissue and around the cyst wall. The lesion was excised and sent to pathology for further examination. Wounds were irrigated with saline solution and suctioned dry. Dermis was then reapproximated using interrupted 3-0 Polysorb sutures. Skin was closed using a running subcuticular 4-0 Polysorb suture. Sterile dressings consisting of Steri-Strips, 2 x 2 gauze and Tegaderm were then applied. The patient tolerated the procedure well and was discharged to home in stable condition.
== END 2023-08-31 13:24 | disposition home or self-care (01) ==
LOC: HO.SSS 11-03 08:20
PROVIDERS: PCP Internal Medicine Geriatric Medicine; Visit Provider Surgery
PROC: (CPT 21931; principal; 2023-08-31 13:30)
PROC: (CPT 21931; 2023-08-31 13:30)
DX: D17.1 Benign lipomatous neoplasm of skin and subcutaneous tissue of trunk (principal); L72.0 Epidermal cyst
CPT/HCPCS: 21931; 11402; 88304

== ENCOUNTER → 2023-08-31 13:23 | Outpatient (BNV) | payer OTHER, SELFPAY | PROVIDERS: PCP Internal Medicine Geriatric Medicine; Visit Provider Surgery | DX: D17.1 Benign lipomatous neoplasm of skin and subcutaneous tissue of trunk (principal); L72.0 Epidermal cyst | CPT/HCPCS: 11402; 21931 ==

== ENCOUNTER 2023-09-07 09:40 | Outpatient (AMB) | payer OTHER, SELFPAY ==
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
[2023-09-07 09:45] VITALS: BMI 30.3
== END 2023-09-07 10:14 | disposition home or self-care (01) ==
PROVIDERS: PCP Internal Medicine Geriatric Medicine; Visit Provider Physical Medicine & Rehabilitation
DX: S32.2XXA Fracture of coccyx, initial encounter for closed fracture (principal)
CPT/HCPCS: 99204

== ENCOUNTER → 2023-09-07 09:40 | Outpatient (BNVA) | payer OTHER, SELFPAY | PROVIDERS: PCP Internal Medicine Geriatric Medicine; Visit Provider Physical Medicine & Rehabilitation ==

== ENCOUNTER 2023-09-09 11:27 | Outpatient (AMB) | payer OTHER, SELFPAY ==
[2023-09-09 11:27] VITALS: BP 108/58; PULSE 87; BMI 30.3
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
== END 2023-09-09 11:42 | disposition home or self-care (01) ==
LOC: HO.HGS 11:27
PROVIDERS: PCP Internal Medicine Geriatric Medicine; Visit Provider Surgery
DX: D17.9 Benign lipomatous neoplasm, unspecified (principal)
CPT/HCPCS: 99024

== ENCOUNTER → 2023-09-09 11:27 | Outpatient (BNVA) | payer OTHER, SELFPAY | PROVIDERS: PCP Internal Medicine Geriatric Medicine; Visit Provider Surgery ==

== ENCOUNTER 2023-10-17 16:54 | Outpatient (REF) | payer OTHER, SELFPAY ==
--- NOTE | ~2023-10-17 | XR_ITS ---
EXAMINATION: XR SACRUM AND COCCYX CLINICAL INFORMATION: Coccygeal fracture status-post fall 6 months prior. COMPARISON: CT pelvis dated 10/17/2023; sacral and coccygeal radiographs dated 04/30/2023. TECHNIQUE: 3 frontal and lateral views of the sacrum and coccyx were obtained. FINDINGS: There are no fractures. A stable mid coccygeal diastases is noted. No bone, joint or soft tissue abnormality is demonstrated. XR/XR sacrum coccyx min 2V IMPRESSION: Unchanged examination, with a stable mid coccygeal diastases noted. No fracture is seen.
--- NOTE | ~2023-10-17 | CT_ITS ---
EXAMINATION: CT PELVIS WITHOUT CONTRAST CLINICAL INFORMATION: Coccygeal fracture. COMPARISON: Sacral radiographs dated 10/17/2023. TECHNIQUE: Helical scanning was performed with submillimeter collimation through the pelvis. Sagittal and coronal multiplanar 2-D reconstructions were obtained. This CT examination was performed using dose optimization techniques as appropriate, variously including the following: *Automated exposure control *Adjustment of mA and/or kV according to patient size (this includes techniques or standardized protocols for targeted exams where dose is matched to indication/reason for exam; i.e. extremities or head) *Use of iterative reconstruction technique DLP: 491 mGy-cm FINDINGS: PELVIS: Included bowel loops are unremarkable. There is a moderately large stool burden, suggesting possible constipation. No obstruction, free intraperitoneal air or abscess is seen. There is no diverticulosis. The vermiform appendix is unremarkable. The urinary bladder is decompressed and unremarkable. There is a dominant 4.9 x 4.8 cm left adnexal simple cyst. No pelvic lymphadenopathy is seen. There is no umbilical or inguinal hernia defect. OSSEOUS STRUCTURES: There is a chronic-appearing mid coccygeal segment diastases (5:104 and 4:114). At L5-S1, there is a 5 mm retrolisthesis. The hip joints are well-maintained. CT/CT pelvis wo IV con IMPRESSION: 1. There is a chronic-appearing mid coccygeal diastases. No convincing acute fracture is seen. Please correlate clinically. 2. A 4.9 cm dominant left adnexal simple cyst is seen. This is a benign functional cyst, and no follow-up imaging is recommended. 3. No pelvic mass, free fluid or lymphadenopathy is seen.
== END 2023-10-17 16:55 | disposition home or self-care (01) ==
LOC: HO.CT 16:54
PROVIDERS: PCP Internal Medicine Geriatric Medicine; Visit Provider Physical Medicine & Rehabilitation
DX: S32.2XXA Fracture of coccyx, initial encounter for closed fracture (principal)
CPT/HCPCS: 72192; 72220

== ENCOUNTER 2024-01-24 09:09 | Outpatient (REF) | payer OTHER, SELFPAY ==
[2024-01-24 11:05] LABS: MANUAL DIFF FLAG NO
[2024-01-24 11:22] LABS: Basophils Percent Auto 0.4 % (0-2); Eosinophils Absolute Auto 0.1 X10*3/uL (0.0-0.4); Eosinophils Percent Auto 1.3 % (0-4); Hematocrit 40.6 % (37.0-47.0); Hemoglobin 13.1 g/dl (12.0-16.0); Imm Gran Abs Auto 0.06 X10*3/uL (0.00-0.03); Imm Gran Pct Auto 0.5 % (0.0-0.4); Lymphocytes Absolute Auto 2.7 X10*3/uL (1.2-4.9); Mean Corpuscular HGB Conc 32.3 g/dl (31.0-35.0); Mean Corpuscular Hemoglobin 30.5 pg (27.0-33.0); Mean Corpuscular Volume 94.6 fL (80.0-98.0); Mean Platelet Volume 9.6 fL (9.4-12.3); Monocytes Absolute Auto 0.9 X10*3/uL (0.1-1.2); Monocytes Percent Auto 8.3 % (2-11); Neutrophils Absolute Auto 7.3 x10*3/uL (2.0-8.3); Neutrophils Percent Auto 65.5 % (45-73); Platelet Count 411 X10*3/uL (160-400); Red Blood Count 4.29 X10*6/uL (4.20-5.50); Red Cell Distribution Width 13.1 % (11.0-16.0); White Blood Count 11.1 X10*3/uL (4.8-10.8)
[2024-01-24 11:30] LABS: Alanine Aminotransferase 14 U/L (0-31); Albumin Level 3.9 g/dL (3.5-5.0); Alkaline Phosphatase 81 U/L (39-117); Anion Gap 12 (12-20); Aspartate Amino Transferase 14 U/L (5-31); Bilirubin Total 0.6 mg/dL (0.0-1.0); Blood Urea Nitrogen 13 mg/dL (9-16); Calcium 9.1 mg/dL (8.4-10.2); Carbon Dioxide 25 mmol/L (22-29); Chloride 107 mmol/L (96-108); Estimated Glomerular Filt Rate > 60; Glucose Random 96 mg/dL (60-115); Potassium 3.7 mmol/L (3.3-5.1); Sodium 140 mmol/L (135-145); Total Protein 6.8 g/dL (6.5-8.0)
== END 2024-01-24 09:10 | disposition home or self-care (01) ==
LOC: HO.HHCL 09:09
PROVIDERS: Referring Provider Internal Medicine Endocrinology, Diabetes & Metabolism; Visit Provider Internal Medicine
DX: L40.3 Pustulosis palmaris et plantaris (principal)
CPT/HCPCS: 36415; 80053; 85025

== ENCOUNTER 2024-02-10 10:28 | Outpatient (REF) | payer OTHER, SELFPAY ==
[2024-02-12 03:56] LABS: HBS Num1 276.05 mIU/mL (0-7.99); Hepatitis A Antibody IgM 0.29 Index (0-0.79); Hepatitis B Core Antibody Nonreactive (Nonreactive); Hepatitis B Surface Antigen Negative (Negative); ~HepC Num1 0.07 S/CO (0.00-0.79); ~Hepatitis A Antibody IgM Nonreactive (Nonreactive); ~Hepatitis B Surface Antibody REACTIVE (Nonreactive); ~Hepatitis C Antibody Nonreactive (Nonreactive)
== END 2024-02-10 10:29 | disposition home or self-care (01) ==
LOC: HO.HHCL 10:28
PROVIDERS: Visit Provider Internal Medicine
DX: L40.3 Pustulosis palmaris et plantaris (principal)
CPT/HCPCS: 36415; 86704; 86706; 86709; 86803; 87340

== ENCOUNTER 2024-02-17 08:52 | Outpatient (AMB) | payer OTHER, SELFPAY ==
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
[2024-02-17 08:59] VITALS: BP 102/60; BMI 30.3
== END 2024-02-17 09:29 | disposition home or self-care (01) ==
PROVIDERS: PCP Internal Medicine Geriatric Medicine; Visit Provider Advanced Practice Midwife
DX: N93.9 Abnormal uterine and vaginal bleeding, unspecified (principal); R35.0 Frequency of micturition
CPT/HCPCS: 99214

== ENCOUNTER 2024-02-17 08:52 | Outpatient (REF) | payer OTHER, SELFPAY | END 2024-02-17 08:53 | disposition home or self-care (01) | LOC: HO.LAB 08:52 | PROVIDERS: PCP Internal Medicine Geriatric Medicine; Visit Provider Advanced Practice Midwife | DX: R35.0 Frequency of micturition (principal) | CPT/HCPCS: 81003; 81025 ==

== ENCOUNTER 2024-02-17 09:20 | Outpatient (REF) | payer OTHER, SELFPAY ==
[2024-02-17 10:17] LABS: Hematocrit 40.7 % (37.0-47.0); Hemoglobin 13.5 g/dl (12.0-16.0); Mean Corpuscular HGB Conc 33.2 g/dl (31.0-35.0); Mean Corpuscular Volume 93.6 fL (80.0-98.0); Mean Platelet Volume 9.5 fL (9.4-12.3); Platelet Count 436 X10*3/uL (160-400); Red Blood Count 4.35 X10*6/uL (4.20-5.50); Red Cell Distribution Width 13.4 % (11.0-16.0); White Blood Count 11.3 X10*3/uL (4.8-10.8)
[2024-02-17 18:18] LABS: Bacterial Vaginosis PCR NEGATIVE (Negative); Candida Group PCR NOT DETECTED (Not Detect); Candida glab krusei PCR NOT DETECTED (Not Detect); Trichomonas vaginalis PCR NOT DETECTED (Not Detect)
[2024-02-18 13:35] LABS: CT PCR NOT DETECTED (Not Detect.); NG PCR NOT DETECTED (Not Detect.)
[2024-02-23 13:34] LABS: HPV mRNA E6/E7 Not Detected (Not Detected)
== END 2024-02-17 09:21 | disposition home or self-care (01) ==
LOC: HO.LNP 09:20
PROVIDERS: Visit Provider Advanced Practice Midwife
DX: N93.9 Abnormal uterine and vaginal bleeding, unspecified (principal); R35.0 Frequency of micturition; Z11.3 Encounter for screening for infections with a predominantly sexual mode of transmission
CPT/HCPCS: 0352U; 85027; 87491; 87591; 87624; 88175

== ENCOUNTER 2024-02-24 13:11 | Outpatient (REF) | payer OTHER, SELFPAY ==
--- NOTE | ~2024-02-24 | US_ITS ---
EXAMINATION: US PELVIS CLINICAL INFORMATION: Abnormal uterine bleeding. Status post right oophorectomy. COMPARISON: CT pelvis 10/16/2022, MR pelvis 06/03/2022, ultrasound pelvis 04/13/2021. TECHNIQUE: Ultrasound of the pelvis is performed using both transabdominal and transvaginal transducers along with Doppler. Transvaginal imaging is performed due to inadequate visualization transabdominally. FINDINGS: Uterus: The uterus is anteverted and measures 9.0 x 3.8 x 4.5 cm. The double wall endometrial thickness is 3 mm. The uterus is smooth in contour and has normal myometrial echogenicity. No visible fibroid. Nabothian cysts are present in the cervix. Adnexa: The right ovary was not seen consistent with surgical removal history. Left ovary measures 3.3 x 1.9 x 2.2 cm for a volume of 7.2 mL which includes a dominant 1.5 cm benign cyst. Prominent veins are present in the left adnexa. US/US pelvic and transvaginal IMPRESSION: No significant abnormality is seen. Electronically signed by: Ashwin Baldwin MD 04/03/2024 11:02 PM [facility] AREVALO
== END 2024-02-24 13:12 | disposition home or self-care (01) ==
LOC: HO.US 13:11
PROVIDERS: PCP Internal Medicine Geriatric Medicine; Visit Provider Advanced Practice Midwife
DX: N93.9 Abnormal uterine and vaginal bleeding, unspecified (principal)
CPT/HCPCS: 76830; 76856

== ENCOUNTER 2024-02-24 15:03 | Outpatient (REF) | payer OTHER, SELFPAY ==
[2024-02-27 11:33] LABS: TS Negative Control Passed; TS Panel A 5; TS Panel B 2; TS Positive Control Passed; TSpotTB Borderline (Negative)
== END 2024-02-24 15:04 | disposition home or self-care (01) ==
LOC: HO.HHCL 15:03
PROVIDERS: Visit Provider Internal Medicine
DX: R76.12 Nonspecific reaction to cell mediated immunity measurement of gamma interferon antigen response without active tuberculosis (principal)
CPT/HCPCS: 36415; 86481

== ENCOUNTER 2024-03-05 13:50 | Outpatient (REF) | payer OTHER, SELFPAY ==
[2024-03-05 15:58] LABS: MANUAL DIFF FLAG NO
[2024-03-05 16:11] LABS: Basophils Absolute Auto 0.1 X10*3/uL (0.0-0.2); Basophils Percent Auto 0.6 % (0-2); Eosinophils Percent Auto 0.3 % (0-4); Hematocrit 41.2 % (37.0-47.0); Hemoglobin 13.4 g/dl (12.0-16.0); Imm Gran Pct Auto 0.8 % (0.0-0.4); Lymphocytes Absolute Auto 3.9 X10*3/uL (1.2-4.9); Lymphocytes Percent Auto 29.5 % (20-40); Mean Corpuscular HGB Conc 32.5 g/dl (31.0-35.0); Mean Corpuscular Hemoglobin 30.5 pg (27.0-33.0); Mean Corpuscular Volume 93.8 fL (80.0-98.0); Mean Platelet Volume 9.7 fL (9.4-12.3); Monocytes Absolute Auto 0.8 X10*3/uL (0.1-1.2); Neutrophils Absolute Auto 8.3 x10*3/uL (2.0-8.3); Neutrophils Percent Auto 62.8 % (45-73); Platelet Count 409 X10*3/uL (160-400); Red Blood Count 4.39 X10*6/uL (4.20-5.50); Red Cell Distribution Width 13.2 % (11.0-16.0); White Blood Count 13.2 X10*3/uL (4.8-10.8)
[2024-03-05 16:33] LABS: Anion Gap 13 (12-20); Blood Urea Nitrogen 18 mg/dL (9-16); Carbon Dioxide 27 mmol/L (22-29); Chloride 102 mmol/L (96-108); Estimated Glomerular Filt Rate > 60; Glucose Random 104 mg/dL (60-115); Potassium 3.9 mmol/L (3.3-5.1); Sodium 138 mmol/L (135-145)
[2024-03-08 05:09] LABS: TS Negative Control Passed; TS Panel A 6; TS Panel B 8; TS Positive Control Passed; TSpotTB Positive (Negative)
== END 2024-03-05 13:51 | disposition home or self-care (01) ==
LOC: HO.HHCL 13:50
PROVIDERS: Internal Medicine Endocrinology, Diabetes & Metabolism; Visit Provider Internal Medicine Geriatric Medicine
DX: L68.0 Hirsutism (principal); R53.83 Other fatigue; R76.12 Nonspecific reaction to cell mediated immunity measurement of gamma interferon antigen response without active tuberculosis
CPT/HCPCS: 36415; 80048; 85025; 86481

== ENCOUNTER 2024-03-15 15:16 | Outpatient (REF) | payer OTHER, SELFPAY ==
--- NOTE | ~2024-03-15 | XR_ITS ---
EXAMINATION: XR CHEST CLINICAL INFORMATION: pt w positive T-spot test needs CXR -in eval for LTBI COMPARISON: X-ray dated February 11, 2021 TECHNIQUE: 2 views of the chest were obtained. FINDINGS: No consolidation, pleural effusion or pneumothorax. Cardiomediastinal silhouette is normal in size. S-shaped curvature of the thoracic spine. XR/XR chest 2V IMPRESSION: No acute airspace disease. Electronically signed by: Balbir Lawrence MD 03/16/2024 08:23 AM AZRA
== END 2024-03-15 15:17 | disposition home or self-care (01) ==
LOC: HO.HHCX 15:16
PROVIDERS: Visit Provider Student in an Organized Health Care Education/Training Program
DX: R76.12 Nonspecific reaction to cell mediated immunity measurement of gamma interferon antigen response without active tuberculosis (principal)
CPT/HCPCS: 71046

== ENCOUNTER → 2024-03-15 15:17 | Outpatient (BNV) | payer OTHER, SELFPAY | PROVIDERS: Visit Provider Radiology Diagnostic Radiology | DX: R76.12 Nonspecific reaction to cell mediated immunity measurement of gamma interferon antigen response without active tuberculosis (principal) | CPT/HCPCS: 71046 ==

== ENCOUNTER 2024-04-06 11:17 | Outpatient (AMB) | payer OTHER, SELFPAY ==
[2024-04-06 11:29] VITALS: BP 108/74; BMI 30.3
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
== END 2024-04-06 12:15 | disposition home or self-care (01) ==
LOC: HO.HWS 11:17
PROVIDERS: PCP Internal Medicine Geriatric Medicine; Visit Provider Advanced Practice Midwife
DX: R87.618 Other abnormal cytological findings on specimens from cervix uteri (principal); N93.9 Abnormal uterine and vaginal bleeding, unspecified
CPT/HCPCS: 58100

== ENCOUNTER 2024-04-06 11:17 | Outpatient (REF) | payer OTHER, SELFPAY | END 2024-04-06 11:18 | disposition home or self-care (01) | LOC: HO.LNP 11:17 | PROVIDERS: PCP Internal Medicine Geriatric Medicine; Visit Provider Advanced Practice Midwife | DX: N93.9 Abnormal uterine and vaginal bleeding, unspecified (principal); R87.618 Other abnormal cytological findings on specimens from cervix uteri | CPT/HCPCS: 58100; 88305 ==

== ENCOUNTER 2024-05-02 07:51 | Outpatient (AMB) | payer OTHER, SELFPAY ==
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
== END 2024-05-02 08:26 | disposition home or self-care (01) ==
LOC: HO.HWS 07:51
PROVIDERS: PCP Internal Medicine Geriatric Medicine; Visit Provider Advanced Practice Midwife
DX: N93.9 Abnormal uterine and vaginal bleeding, unspecified (principal); Z71.2 Person consulting for explanation of examination or test findings
CPT/HCPCS: 99213

== ENCOUNTER 2024-05-02 07:51 | Outpatient (REF) | payer OTHER, SELFPAY ==
[2024-05-02 09:53] LABS: Thyroid Stimulating Hormone 0.53 uIU/mL (0.32-4.0)
== END 2024-05-02 07:52 | disposition home or self-care (01) ==
LOC: HO.LAB 07:51
PROVIDERS: PCP Internal Medicine Geriatric Medicine; Visit Provider Advanced Practice Midwife
DX: N93.9 Abnormal uterine and vaginal bleeding, unspecified (principal)
CPT/HCPCS: 36415; 84443

== ENCOUNTER 2024-06-15 15:22 | Outpatient (REF) | payer OTHER, SELFPAY ==
--- OUTSIDE RECORDS SUMMARY | 2024-06-15 15:26 | XMS_ITS | Clinical Summary ---
Author Organization [employer] Address [address] [place] [address] 7[address] [place] [address] Care Team Providers Care Cigarette Inspector Name Role Phone Name, Shar JEFFREY Primary Care Provider [phone] Allergies Active Allergy Reactions Criticality Noted Date Comments Cat Dander Itching 12/08/2022 Dog Epithelium 12/08/2022 Medications Sodium Fluoride 1.1 % gel brush on teeth two times a day ( am and before bedtime) 1 Active acetaminophen (Tylenol) 325 MG tablet Take 650 mg by mouth every 4 (four) hours if needed. 3 Active nicotine polacrilex (Commit) 4 MG lozenge Dissolve 1 lozenge (4 mg) in the mouth every 2 (two) hours if needed for smoking cessation. 100 lozenge 4 Active aspirin 81 MG chewable tablet Chew 1 tablet (81 mg) Once per day. 30 tablet 4 08/19/19 25 Active folic acid (Folvite) 1 MG tabletIndicatio ns:Palmoplantar pustulosis Take 1 tablet (1 mg) by mouth Once per day. 30 tablet 4 01/06/20 25 Active loratadine (Claritin) 10 MG tablet Take 1 tablet (10 mg) by mouth Once per day. 90 tablet 1 4 Active methocarbamol (Robaxin) 750 MG tablet Take 1 tablet (750 mg) by mouth 4 times daily for 10 days. 40 tablet 2 4 Active Risankizumab-rz aa (Skyrizi) 150 MG/ML solution prefilled syringeIndicati ons:Palmoplanta r pustulosis 150 mg wk 0 and wk 4 then every 12 weeks 1 mL 11 4 Active hydrOXYzine pamoate (Vistaril) 25 MG capsuleIndicati ons:Palmoplanta r pustulosis Take 1 capsule (25 mg) by mouth every 6 (six) hours if needed for itching for up to 10 days. 30 capsule 4 Active tacrolimus (Protopic) 0.1 % ointmentIndicat ions:Palmoplant ar pustulosis Apply topically 2 times daily. 60 g 2 5 05/04/19 26 Active betamethasone, augmented, (Diprolene) 0.05 % ointmentIndicat ions:Palmoplant ar pustulosis Apply topically 2 times daily. 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/2023 Coccyx pain 05/02/2023 Tobacco dependence 04/27/2023 H/O unilateral oophorectomy 12/16/2022 Ovarian mass, right 12/15/2022 IUD (intrauterine device) in place 12/15/2022 Localized gingival recession 05/07/2022 Dental calculus 05/07/2022 Gingival bleeding 05/07/2022 Extruded tooth 05/07/2022 Tooth hypersensitivity 05/07/2022 Depressive disorder 04/23/2022 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 Overview (12/16/2022): Seen at TB clinic, not recommended treatment No symptoms and normal X-ray Mantoux: positive 12/15/2016 Cyst of skin 07/01/2016 H/O splenectomy 05/03/2016 Hyperglycemia 05/15/2015 Encounters Date Type Department Care Team Description 06/01/2024 10:00 AM EST Office Visit [facility] ADULT DENTAL [address] [place] [phone] Valentina Schneider Dental calculus (Primary Dx); Localized gingival recession; Abfraction; Tooth sensitivity 05/04/2024 10:30 AM EST Office Visit [address] [address] Michael Grace MD Palmoplantar pustulosis; 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 Travel 05/02/2024 Orders Only GENERIC EXTERNAL DATA DEPARTMENT Provider, Generic External Data 04/23/[address] [address] [place] june recalls 04/16/[address] [address] Francisca Thompson RN 04/06/2024 1:45 PM EST Office Visit [address] [address] Michael Grace MD Palmoplantar pustulosis (Primary Dx); 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 04/06/2024 Orders Only GENERIC EXTERNAL DATA DEPARTMENT Provider, Generic External Data 04/06/[address] [address] Shar Cesar MD Appointment Request 04/06/2024 Travel 03/26/2024 7:00 PM EST Office Visit [facility] [address] [place] [address] Aldo Carbajal MD Palmoplantar pustulosis 03/19/[address] [address] Shar Cesar MD callback requested 03/16/[address] [place] [address] Krystal Robles RN 03/16/2024 Orders Only [facility] MEDICINE [address] [place] [address] Josette Rasmussen MD 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 (Primary Dx) from Last 3 Months Immunizations Name Administration Dates Next Due Influenza injectable quadriv alent IIV4 with preservative 03/05/2016,05/15/2015 Influenza injectable quadriv alent preservative free 02/18/2023,04/29/2022,01/17/2020,05/24 Influenza, seasonal, injecta ble, preservative free 01/20/2024 Meningococcal MCV4P ACYW-135 11/03/2018 Meningococcal Polysaccharide A,C,Y,W-135 TT Conjugate 01/20/2024 Moderna Covid-19 Vaccine 12+ 06/16/2022,05/19/19 23 Pneumococcal Conjugate PCV 20 06/02/2023 Pneumococcal Polysaccharide PPSV23 05/24/2018, Tdap 08/19/2023,11/03/2018 Varicella 05/03/2022 Social History Tobacco Use Types Packs/Day Years Used Date Smoking Tobacco: Every Day Cigarettes Passive Smoke Exposure: Current Smokeless Tobacco: Never Tobacco Cessation:Ready to Q uit: Not Asked; Counseling Given: Not Answered Alcohol Use Standard Drinks/Week Comments Yes 0 (1 standard drink = 0.6 oz pur e alcohol) socially Depression Answer Date Recorded Patient Health Questionnaire-9 Score 17 08/19/2023 Patient Health Questionnaire-9 Score 17 08/19/2023 Last PHQ-9: Questionnaire Data Not on file 0 08/19/2023 Housing Stability Answer Date Recorded What is your housing situation today? I have iriskorin grayson 02/16/[address] you li ve. Do you have problems with any of the following? None of the above 02/16/2023 Food Insecurity Answer Date Recorded Within the past 12 months, y ou worried that your food would run out before you got money to buy more: Never True 02/16/2023 Within the past 12 months,th e food you bought just didn't last and you didn't have enough money to get more: Never True Transportation Answer Date Recorded In the past 12 months, has l ack of transportation kept you from medical appts, meetings, work or from getting things needed for daily living? No 02/16/2023 Utilities Answer Date Recorded In the past 12 months, has t he electric, gas, oil or water company threatened to shut off services in your home? No 02/16/2023 Depression Answer Date Recorded Patient Health Questionnaire-2 Score 6 08/19/2023 Comments Unknown Sex and Gender Information Value Date Recorded Sex Assigned at Female 02/22/2022 10:28 AM EDT Legal Sex Female 10:28 AM EDT Gender Identity Female 02/22/2022 10:28 AM EDT Sexual Orientation Straight 02/22/2022 10 :28 AM EDT Last Filed Vital Signs Vital Sign Reading Time Taken Comments Blood Pressure 118/72 06/01/2024 10:14 AM EST Pulse 88 05/04/2024 10:42 AM EST Temperature 37.1 ??C (98.7 ??F) 05/04/2024 1 0:42 AM EST Respiratory Rate 19 04/06/2024 1:48 PM EST Oxygen Saturation 100% 03/26/2024 7:05 PM EST Inhaled Oxygen Concentration - - Weight 74.8 kg (164 lb 12.8 oz) 025 10:42 AM EST Height 160 cm (5' 3 ) 05/04/2024 10:42 AM EST Body Mass Index 29.19 05/04/2024 10:42 AM EST Plan of Treatment Upcoming Encounters Date Type Department Care Team (Late st Contact Info) Description 06/22/2024 9:00 AM EST Office Visit [facility] OPTOMETRY [address] [place] [address] Jeferson, Lety, OD [address] [place] [address] 06/22/2024 10:00 AM EST Office Visit [facility] ADULT DENTAL [address] [place] [address] Vivek Esquivel, DDS [address] [place] [address] 06/29/2024 9:15 AM EST Office Visit [facility] MEDICINE [address] [place] [address] Michael Grace MD [address] [place] [address] 08/24/2024 10:30 AM EDT Office Visit [facility] MEDICINE [address] [place] [address] Shar Cesar MD [address] [place] [address] 12/05/2024 10:00 AM EDT Office Visit [facility] ADULT DENTAL [address] [place] [address] Puneet Schneideraris [address] [place] [address] Health Maintenance Due Date Last Done Comments CT Colonography 1975 Colonoscopy 1975 Colorectal Cancer Screening 1975 FIT DNA/Cologuard 1975 FIT 1975 FOBT 1975 Sigmoidoscopy 1974 HIB Vaccines (1 of 1 - Risk 1-dose series) 09/07/1975 Meningococcal B Vaccine (1 of 4 - Increased Risk) 1984 Alcohol/Substance Use Screening 1986 Family Planning (PISQ) 1989 Hepatitis A Vaccines (1 of 2 - Risk 2-dose series) 1993 Hepatitis B Vaccines (1 of 3 - 19+ 3-dose series) 1993 COVID-19 Vaccine ( - season) 2023 06/16/2022, 05/19/2022 Depression Monitoring (PHQ-9) 02/18/2024 08/19/2023, 08/19/2023 SDOH Screening 05/26/2024 05/26/2023 Zoster Vaccines (1 of 2) 2024 Depression Screening 08/18/2024 08/19/2023, 08/19/19 24 Dental Oral Exam 11/30/2024 06/01/2024, 05/2023, 05/07/2022 Dental Prophylaxis 11/30/2024 06/01/2024, 0 11/25/2023, 04/26/2023, Additional history exists Dental X-Ray: Full Mouth 05/08/2025 05/07/2022 Tobacco Screening 06/01/2025 06/01/2024 Dental X-Ray: Bitewings 06/02/2025 06/01/19 25, 04/26/2023, 05/07/2022 Mammogram 06/10/2025 06/10/2023, 08/0 07/2021, 04/02/2019, Additional history exists Cervical Cancer Screening 01/15/2026 HPV/Cotest 01/15/2026 01/15/2021 Pap Smear 01/15/2026 01/15/2021 Lipid Panel 07/18/2028 07/19/2023, 01/23, 01/30/2020 Meningococcal Vaccine (3 - Risk 2-dose series) 01/19/2029 01/20/2024, 11/03/2018 DTaP/Tdap/Td Vaccines (3 - Td or Tdap) 08/18/2033 08/19/2023, 11/03/2018 RSV Patients and Patients Aged 60 years or older (1 - 1-dose 75+ series) 2049 HIV Screening Completed 04/08/2022, 12/26, 03/28/2019 Pneumococcal Vaccine: 50+ Years Completed 06/02/2023, 05/24/2018, 06/13/2012 Influenza Vaccine Completed 01/20/2024, , 04/29/2022, Additional history exists Hepatitis C Screening Completed 02/10/2024 , 04/08/2022, 01/22/2021, Additional history exists HPV Vaccines Aged Out No longer eligi ble based on patient's age to complete this topic IPV Vaccines Aged Out No longer eligi ble based on patient's age to complete this topic RSV under 20 months Aged Out No longe r eligible based on patient's age to complete this topic Rotavirus Vaccines Aged Out No longer eligible based on patient's age to complete this topic Procedures Procedure Name Priority Date/Time Associated Diagnosis Comments CASE PRESENTATION, DETAILED AND EXTENSIVE TREATMENT PLANNING Routine 06/01/2024 10:00 AM EST PERIODIC ORAL EVALUATION - ESTABLISHED PATIENT Routine 06/01/2024 10:00 AM EST ORAL HYGIENE INSTRUCTIONS Routine 06/01/2024 10:00 AM EST Dental calculus Localized gingival recession BITEWINGS - 4 RADIOGRAPHIC IMAGES Routine 06/01/2024 10:00 AM EST Dental calculus Localized gingival recession PROPHYLAXIS - ADULT Routine 06/01/2024 1 0:00 AM EST Dental calculus TSH Routine 05/02/2024 8:23 AM EST GROSS AND MICROSCOPIC LEVEL 4 Routine 04/06/2024 12:16 PM EST XR CHEST 2 VIEWS Routine 03/15/2024 3:17 PM EST Positive QuantiFERON-TB Gold test HEPATITIS PANEL, GENERAL Routine 02/10/2024 10:30 AM EDT Palmoplantar pustulosis LIPID PANEL, STANDARD Routine 07/19/2023 9:14 AM EDT Screening for cholesterol level BI MAMMOGRAM SCREENING TOMOSYNTHESIS BILATERAL Routine 06/10/2023 4:15 PM EST INTRAORAL - COMPLETE SERIES OF RADIOGRAPHIC IMAGES Routine 05/07/2022 11:00 AM EST HIV ANTIBODY/ANTIGEN ([place] DPH) Routine 04/08/2022 11:31 AM EST ZZZ HISTORICAL HPV E6/E7 RFLX SABAS 16 18/45 Routine 01/15/2021 2:26 PM EDT HM PAP/HPV Routine 01/15/2021 from Last 3 Months or Most Recently Relevant to Health Maintenance Results * TSH (05/02/2024 8:23 AM EST) Thyroid Stimulating Hormone 0.53 0.32 - 4.0 uIU/mL [facility] Comment:TSH 3rd Generation ( [facility] [employer]) 05/02/2024 8:23 AM EST 05/02/2024 8:23 AM EST us Generic External Data Provider LAB BLOOD ORDERAB LES Final Result [facility] [address] [place] [address] [phone] * Gross and Microscopic Level 4 (04/06/2024 12:16 PM EST) 04/06/2024 12:1 6 PM EST 04/09/2024 6:36 AM EST Narrative [facility] - 04/11/2024 9:44 AM EST ----- ------- Name: Laura Stark ? Age/Sex: 48/F ? : 1975 Unit#: [id number] ?? Attend Dr: Carla Bruce CNM ?Re04/06/24 ?Status: DEP REF ? Location: HO.LNP ?Disch: ? ----- ------- SPEC : [id number] ? RECD: 04/09/24-635 ? STATUS: ??SOUT ? REQ NUM: [id number] ? RUTH: 04/06/241216 ? SUBM DR: Carla Bruce CNM ? ENTERED: ??04/09/24 ?SP TYPE: Surgical ? OTHR DR: NameShar MD ? ORDERED: ??Gross Micro L4 ? Diagnosis ?? Endometrium, biopsy: ?- Superficial fragments of benign endometrium. ?- Small fragment of endocervical epithelium with squamous metaplasia; mucoinflammatory ?? material. ?- No atypia identified. ?Clinical History AUB ?Microscopic Description Microscopic sections reviewed. ? Material Received ?? Endometrial biopsy ? Gross Description Received in formalin labeled ?EMB? is a 1.4 x 1.2 x 0.4 cm aggregate of mucus and blood with multiple congested and hemorrhagic maroon-brown irregular tissue fragments, submitted in toto in a cassette labeled A. CEDS Copies To: ?? Carla Bruce CNM ?? [facility] ?? [address] ?? [place] [address] ?? [phone] ?? Name,Shar JEFFREY ?? [address] [facility] ?? [place] [address] ?? [phone] ----- ------- Signed (signature on file) Raul Suggs MD 04/11/24 0944 ? ----- ------- ? END OF REPORT ? us Generic External Data Provider LAB CYTOLOGY CHARLEYE NATHANIEL Final Result [facility] [address] [place] [address] [phone] * XR Chest 2 Views (03/15/2024 3:17 PM EST) Anatomical Region Laterality Modality Chest Radiographic Essie ging 03/15/2024 3:17 PM EST Narrative 03/16/2024 8:26 AM EST ?[facility] ?[address] ?[place] [address] ?XRay Report ? Signed ? Patient: Stark,Laura ?MR#: [id number] ?? [id number] ? : 1975 ?Acct:[id number] ? Age/Sex: 48 / F ?ADM Date: 11/21/24 ? Loc: HO.HHCX ? Attending Dr: Josette Jose MD ? Ordering Physician: Josette Rasmussen MD ?? Date of Service: 03/15/24 ?? Procedure(s): XR chest 2V ?? Accession Number(s): [id number] ? cc: Josette Rasmussen MD ? EXAMINATION: ?? XR CHEST ? CLINICAL INFORMATION: ?? pt w positive T-spot test needs CXR ??-in eval for LTBI ? COMPARISON: ?? X-ray dated February 11, 2021 ? TECHNIQUE: ?? 2 views of the chest were obtained. ? FINDINGS: ?? No consolidation, pleural effusion or pneumothorax. Cardiomediastinal ?? silhouette is normal in size. S-shaped curvature of the thoracic spine. ? XR/XR chest 2V ?? IMPRESSION: ?? No acute airspace disease. ? Electronically signed by: ??Balbir Lawrence MD ??03/16/2024 08:23 AM ?? EST RP ? Dictated By: ?Balbir Vallejo MD ? Signed By: ?<Electronically signed by Balbir Best MD in OV> ? 03/16/24 0823 ? DD/ 1517 ? TD/TT: 03/15/24 1547 ? Machine Cage Maker: ? Procedure Note Blanca, Kim - 03/16/[address] [address] XRay Report Signed Patient: Laura StarkMR#: [id number] : 1975Acct:[id number] Age/Sex: 48 / FADM Date: 03/15/24 Loc: HO.HHCX Attending Dr: Josette Jose MD Ordering Physician: Josette Rasmussen MD Date of Service: 03/15/24 Procedure(s): XR chest 2V Accession Number(s): [id number] cc: Josette Rasmussen MD EXAMINATION: XR CHEST CLINICAL INFORMATION: pt w positive T-spot test needs CXR -in eval for LTBI COMPARISON: X-ray dated February 11, 2021 TECHNIQUE: 2 views of the chest were obtained. FINDINGS: No consolidation, pleural effusion or pneumothorax. Cardiomediastinal silhouette is normal in size. S-shaped curvature of the thoracic spine. XR/XR chest 2V IMPRESSION: No acute airspace disease. Electronically signed by: Balbir Lawrence MD 03/16/2024 08:23 AM EST RP Dictated By: Balbir Vallejo MD Signed By: <Electronically signed by Balbir Best MDin OV> 03/16/24 0823 DD/ 1517 TD/TT: 03/15/24 1547 Machine Cage Maker: us oJsette Jose MD IMG XR PROCEDURES Final Result * Hepatitis A,B,C Profile (02/10/2024 10:30 AM EDT) Hepatitis A IgM Nonreactive Nonreactive [facility] Comment:IgM antibodies to [place] V not detected; does not exclude earlyacute or recovered HAV infection. ~Hepatitis B Surface Antibody REACTIVE Nonreactive [facility] Comment:REACTIVE: > 11.99 mI U/mL Hepatitis B Core Antibody Nonreactive Nonreactive [facility] Hepatitis C Antibody Nonreactive Nonreactive [facility] Comment:Antibodies to HCV no t detected; does not exclude early acuteHCV infection. Hepatitis B Surface Ag Negative Negative [facility] Blood Venous blood specimen / Unknown 02/10/2024 10:30 AM EDT 02/10/2024 12:02 PM EDT us Michael Grace MD LAB BLOOD ORDERABLES Final Re sult [facility] [address] [place] [phone] * (ABNORMAL) Lipid Panel, Standard (07/19/2023 9:14 AM EDT) Triglycerides 83 <150 mg/dL [facility] Comment:Desirable Triglyceri de: less than 150 mg/dLBorderline High Triglyceride 150-199 mg/dLHigh Triglyceride: 200-499 mg/dLVery High Triglyceride: greater than or equal to 5OO mg/dL Cholesterol 188 <200 mg/dL [facility] Comment:Desirable Cholestero l: less than 200 mg/dLBorderline High Cholesterol: 200-239 mg/dLHigh Cholesterol: greater than 239 mg/dL LDL Cholesterol Calculated 131(H) <100 mg/dL [facility] Comment:Desirable LDL: less than 100 mg/dLNear Optimal/Above Optimal LDL: 110- 129 mg/dLBorderline High LDL: 130-159 mg/dLHigh LDL: 160-189 mg/dLVery High LDL: greater than or equal to 190 mg/dL HDL Cholesterol 41 >40 mg/dL [facility] Comment:Desirable HDL: great er than 40 mg/dL Note: This HDL assay may give artificially low results in patients with liver disease. Blood Venous blood specimen / Unknown 07/19/2023 9:14 AM EDT 07/19/2023 11:53 AM EDT us Shar Name LAB BLOOD ORDERABLES Final Resul t [facility] [address] [place] [address] [phone] * BI Mammogram Screening Tomosynthesis Bilateral (06/10/2023 4:15 PM EST) Anatomical Region Laterality Modality Breast Bilateral Mammography 06/10/2023 4:15 PM EST Narrative 06/23/2023 7:29 PM EST ? [facility] [place] ? [address] ?[place] [address] ? Mammography Report ? Signed ? Patient: Stark,Laura ?MR#: [id number] ?? [id number] ? : 1975 ?Acct:[id number] ? Age/Sex: 48 / F ?ADM Date: 02/16/24 ? Loc: HO.MAMMO ? Attending Dr: Shar Name MD ? Ordering Physician: Name,Shar MD ?Results: 1Negative ? Date of Service: 06/10/23 ?Follow Up: 1 Year From Orig ?? inal Mammogram ? Procedure(s): MM tomosynthesis screening BI ?? Accession Number(s): [id number] ? cc: Name,Shar JEFFREY ? EXAMINATION: ?? MM SCREENING DIGITAL BREAST TOMOSYNTHESIS, BILATERAL ? CLINICAL INFORMATION: ? Screening. Asymptomatic. ? COMPARISON: ?? Mammography: This study is compared with prior exams dating back to ?? 2018. ? TECHNIQUE: ?? Digital breast tomosynthesis is performed in both the craniocaudal and ?? mediolateral oblique views along with computer-aided detection (CAD). ?? Synthesized 2D images are generated from the tomosynthesis. ? FINDINGS: ?? There are scattered areas of fibroglandular density (ACR BI-RADS breast ?? composition Category b). ? There are no significant masses, abnormal calcifications, or other ?? abnormalities. ? MM/MM tomosynthesis screening BI ?? IMPRESSION: ?? No mammographic evidence of malignancy. ? ASSESSMENT: ? BI-RADS BI-RADS 1 - Negative ? RECOMMENDATION: ?? Routine annual mammography screening. ? 1 year F/U ? This examination should not preclude the clinical evaluation of a ?? suspicious palpable abnormality. ? This patient's information was entered into a reminder system with a ?? target due date for their next mammogram. ? Dictated By: ?Ellen Kate MD ? Signed By: ?<Electronically signed by Ellen Kate MD in OV> ? 06/23/236 ? DD/ ? TD/TT: ? Machine Cage Maker: ? Procedure Note Donotuseinterpreter, Image - 06/23/2023 [facility] [address] [place], [place] [address] Mammography Report Signed Patient: Laura StarkMR#: [id number] : 1975Acct:[id number] Age/Sex: 48 / FADM Date: 06/10/23 Loc: HO.MAMMO Attending Dr: Shar Cesar MD Ordering Physician: Shar Cesar MDResults: 1Negative Date of Service: 06/10/23Follow Up: 1 Year From Orig inal Mammogram Procedure(s): MM tomosynthesis screening BI Accession Number(s): [id number] cc: Shar Cesar MD EXAMINATION: MM SCREENING DIGITAL BREAST TOMOSYNTHESIS, BILATERAL CLINICAL INFORMATION: Screening. Asymptomatic. COMPARISON: Mammography: This study is compared with prior exams dating back to 2018. TECHNIQUE: Digital breast tomosynthesis is performed in both the craniocaudal and mediolateral oblique views along with computer-aided detection (CAD). Synthesized 2D images are generated from the tomosynthesis. FINDINGS: There are scattered areas of fibroglandular density (ACR BI-RADS breast composition Category b). There are no significant masses, abnormal calcifications, or other abnormalities. MM/MM tomosynthesis screening BI IMPRESSION: No mammographic evidence of malignancy. ASSESSMENT: BI-RADS BI-RADS 1 - Negative RECOMMENDATION: Routine annual mammography screening. 1 year F/U This examination should not preclude the clinical evaluation of a suspicious palpable abnormality. This patient's information was entered into a reminder system with a target due date for their next mammogram. Dictated By: Ellen Kate MD Signed By: <Electronically signed by Ellen Kate MD in OV> 06/23/23 1926 DD/ 1615 TD/TT: Machine Cage Maker: Shar Cesar MD IM BI PROCEDURES Final Result * HIV Ab/Ag (GENNARO CASTILLO) (04/08/2022 11:31 AM EST) HIV AB/AG Nonreactive Nonreactive [facility] Comment:HIV-1 p24 Ag and/or HIV-1/HIV-2 Ab not detected.A test result that is nonreactive does not exclude thepossibility of exposure to or infection with HIV-1 and/orHIV-2. Nonreactive results in this assay for individualswith prior exposure to HIV-1 and/or HIV-2 may be due toantigen and antibody levels that are below the limit ofdetection of this assay.[facility] [employer] [facility] Supervisor HIV Ag/Ab Combo assay result andsupplemental assay results should be interpreted inconjunction with the patient's clinical presentation,history and other laboratory results. If the results areinconsistent with clinical evidence, additional testing issuggested to confirm the result. 04/08/2022 11:3 1 AM EST 04/08/2022 11:31 AM EST [facility] External Provider LAB BLO OD ORDERABLES Final Result Performing Organization Address City/State/[facility] Co de Phone Number [facility] [address] [place] [phone] * HPV E6/E7 RFLX SABAS 16 18/45 (01/15/2021 2:26 PM EDT) HPV 16 RNA [facility] HPV 18/45 RNA [facility] HPV E6 E7 ADD [facility] HPV mRNA E6/E7 rflx Not Detected Not Detected [facility] Comment: Methodology: [employer]ner-Mediated Amplification This assay detects E6/E7 viral messenger RNA (mRNA) from 14 high-risk HPV types (16,18,31,33,35,39,45,51,52,56,58,59,66,68). The analytical performance characteristics of this assay have been determined by [employer]. The modifications have not been cleared or approved by the FDA. This assay has been validated pursuant to the CLIA regulations and is used for clinical purposes. For additional information, please refer to http://education.[employer].Gezlong/faq/NRZ419p8 (This link if provided for information/ educational purposes only.) THIS TEST WAS PERFORMED AT: [facility] [address] [place], [place] ??[phone] RAMAN JOHNSON MD 01/15/2021 2:26 PM EDT Carla Bruce HISTORICAL/NON ORDERABLE LABS Fi nal Result [facility] [address] [place] [address], * Pap Smear (01/15/2021) Historical Provider HEALTH MAINTENANCE Final Result from Last 3 Months or Most Recently Relevant to Health Maintenance [place] [address] [place] [address] HSN PARTIAL DENTAL - HSN PARTIAL (MEDICAID) [facility] Care Teams Cigarette Inspector Relationship Specialty Start Date End Date Name, MD Shar [address] [place] [address] PCP - General Family Medicine 03/22/16
--- OUTSIDE RECORDS SUMMARY | 2024-06-15 15:26 | XMS_ITS | Encounter Summary ---
Author Organization [employer] Address [address] [place] [address] 7t [place] [address] Care Team Providers Care Mattress And Foundation Sewer Name Role Phone Name, Shar JEFFREY Primary Care Provider Encounter Details Date Type Department Care Team (Late st Contact Info) Description 01/19/2023 Orders Only [facility] MEDICINE [address] [place] [address] Provider, MD Nereyda Social History Tobacco Use Types Packs/Day Years Used Date Smoking Tobacco: Every Day Cigarettes Passive Smoke Exposure: Never Smokeless Tobacco: Never Alcohol Use Standard Drinks/Week Comments Yes 0 (1 standard drink = 0.6 oz pur e alcohol) socially Depression Answer Date Recorded Patient Health Questionnaire-9 Score 11 12/16/2022 Depression Answer Date Recorded Patient Health Questionnaire-2 Score 4 12/16/2022 Comments Unknown Sex and Gender Information Value Date Recorded Sex Assigned at Female 02/22/2022 10:28 AM EDT Legal Sex Female 10:28 AM EDT Gender Identity Female 02/22/2022 10:28 AM EDT Sexual Orientation Straight 02/22/2022 10 :28 AM EDT documented as of this encounter Plan of Treatment Upcoming Encounters Date Type Department Care Team (Late Contact Info) Description 06/22/2024 9:00 AM EST Office Visit [facility] OPTOMETRY [address] [place] [address] Lety Govea, OD [address] [place] [address] 06/22/2024 10:00 AM EST Office Visit [facility] ADULT DENTAL [address] [place] [address] Vivek Esquivel DDS [address] [place] [address] 06/29/2024 9:15 AM EST Office Visit [facility] MEDICINE [address] [place] [address] Michael Grace MD [address] [place] [address] 08/24/2024 10:30 AM EDT Office Visit [facility] MEDICINE [address] [place] [address] NameShar MD [address] [place] [address] 12/05/2024 10:00 AM EDT Office Visit [facility] ADULT DENTAL [address] [place] [address] Puneet Schneideraris [address] [place] [address] documented as of this encounter Procedures Procedure Name Priority Date/Time Associated Diagnosis Comments HM PAP/HPV Routine 01/15/2021 documented in this encounter Results * Hm Pap Smear (01/15/2021) Historical Provider HEALTH MAINTENANCE Final Result documented in this encounter Visit Diagnoses Not on filedocumented in this encounter Additional Health Concerns Assessment Noted Time PHQ-9 Depression Total Score: 11 023 11:41 AM EDT documented as of this encounter Care Teams Mattress And Foundation Sewer Relationship Specialty Start Date End Date Name, [place] [address] PCP - General Family Medicine 03/22/16 documented as of this encounter
--- OUTSIDE RECORDS SUMMARY | 2024-06-15 15:26 | XMS_ITS | Encounter Summary ---
Author Organization [employer] Address [address] [facility] 7t [place] [address] Care Team Providers Care Stick Roller Name Role Phone Name, Shar JEFFREY Primary Care Provider [phone] Reason for Visit * Reason Onset Date Comments returning phone call 06/15/2022 Encounter Details Date Type Department Care Team (Late st Contact Info) Description 06/15/2022 Telephone [facility] MEDICINE [address] [place], [place] [phone] Name, MD Shar [address] [place] [address] returning phone call Social History Tobacco Use Types Packs/Day Years Used Date Smoking Tobacco: Every Day Cigarettes Passive Smoke Exposure: Never Smokeless Tobacco: Never Comments Unknown Sex and Gender Information Value Date Recorded Sex Assigned at Female 02/22/2022 10:28 AM EDT Legal Sex Female 10:28 AM EDT Gender Identity Female 02/22/2022 10:28 AM EDT Sexual Orientation Straight 02/22/2022 10 :28 AM EDT COVID-19 Exposure Response Date Recorded In the last 10 days, have yo u been in contact with someone who was confirmed or suspected to have Coronavirus/COVID-19? No / Unsure 06/16/2022 5:10 PM EST documented as of this encounter Miscellaneous Notes * Telephone Encounter - Jayant Lopez - 06/15/2022 3:00 PM EST Tc from pt returning Phone call. Please contact pt at [phone] documented in this encounter Plan of Treatment Upcoming Encounters Date Type Department Care Team (Late st Contact Info) Description 06/22/2024 9:00 AM EST Office Visit [facility] OPTOMETRY [address] [place] [address] Lety Govea, OD [address] [place] [address] 06/22/2024 10:00 AM EST Office Visit [facility] ADULT DENTAL [address] [place] [address] Vivek Esquivel, LUISS [address] [place] [address] 06/29/2024 9:15 AM EST Office Visit [facility] MEDICINE [address] [place] [address] Michael Grace MD [address] [place] [address] 08/24/2024 10:30 AM EDT Office Visit [facility] MEDICINE [address] [place] [address] Name, MD Shar [address] [place] [address] 12/05/2024 10:00 AM EDT Office Visit [facility] ADULT DENTAL [address] [place] [address] Valentina Schneider [address] [place] [address] documented as of this encounter Visit Diagnoses Not on filedocumented in this encounter Care Teams Stick Roller Relationship Specialty Start Date End Date Name, MD Shar [address] [place] [address] PCP - General Family Medicine 03/22/16 documented as of this encounter
--- OUTSIDE RECORDS SUMMARY | 2024-06-15 15:26 | XMS_ITS | Encounter Summary ---
Author Organization [employer] Address [address] [facility] 7t [place] [address] Care Team Providers Care Photographer'S Model Name Role Phone Name, Shar JEFFREY Primary Care Provider [phone] Reason for Visit * Reason Comments Med Refill Encounter Details Date Type Department Care Team (Late st Contact Info) Description 10/02/2023 Refill [facility] MEDICINE [address] [place], [place] [phone] Name, MD Shar [address] [place] [address] Social History Tobacco Use Types Packs/Day Years [...] is your housing situation today? I have iris grayson 02/16/[address] you [...] Description 06/22/2024 9:00 AM EST Office Visit [facility] OPTOMETRY [address] [place] [address] Jeferson, Lety, OD 230 [place] [address] 06/22/2024 10:00 AM EST Office Visit [facility] ADULT DENTAL [address] [place] [address] Vivek Esquivel DDS [address] [place] [address] 06/29/2024 9:15 AM EST Office Visit [facility] MEDICINE [address] [place] [address] Michael Grace MD [address] [place] [address] 08/24/2024 10:30 AM EDT Office Visit [facility] MEDICINE [address] [place] [address] Name, MD Shar [address] [place] [address] 12/05/2024 10:00 AM EDT Office Visit [facility] ADULT DENTAL [address] [place] [address] Wyatt, Valentina [address] [place] [address] documented as of this encounter Visit Diagnoses Not on filedocumented in this encounter Additional Health Concerns Assessment Noted Time PHQ-9 Depression Total Score: 17 024 9:32 AM EDT documented as of this encounter Care Teams Photographer'S Model Relationship Specialty Start Date End Date Name, MD Shar [address] [place] [address] PCP - General Family Medicine 03/22/16 documented as of this encounter
--- OUTSIDE RECORDS SUMMARY | 2024-06-15 15:26 | XMS_ITS | Encounter Summary ---
Author Organization [employer] Address [address] [facility] 7t [place] [address] Care Team Providers Care International Student Advisor Name Role Phone Name, Shar JEFFREY Primary Care Provider [phone] Encounter Details Date Type Department Care Team (Latest Contact Info) Description 08/22/2020 Abstract [facility] CONVERSIONS Dental, Provider, DDS Social History Tobacco Use Types Packs/Day Years Used Date Smoking Tobacco: Never Assessed Comments Unknown Sex and Gender Information Value [...] Description 06/22/2024 9:00 AM EST Office Visit [facility] OPTOMETRY [address] [place] [address] Jeferson, Lety, OD [address] [place] [address] 06/22/2024 10:00 AM EST Office Visit [facility] ADULT DENTAL [address] [place] [address] Vivek Esquivel, DDS [address] [place] [address] 06/29/2024 9:15 AM EST Office Visit [facility] MEDICINE [address] [place] [address] Michael Grace MD [address] [place] [address] 08/24/2024 10:30 AM EDT Office Visit [facility] MEDICINE [address] [place] [address] Name, MD Shar [address] [place] [address] 12/05/2024 10:00 AM EDT Office Visit [facility] ADULT DENTAL [address] [place] [address] WyattValentina [address] [place] [address] documented as of this encounter Visit Diagnoses Not on filedocumented in this encounter Care Teams International Student Advisor Relationship Specialty Start Date End Date Name, MD Shar [address] [place] [address] PCP - General Family Medicine 03/22/16 documented as of this encounter
--- OUTSIDE RECORDS SUMMARY | 2024-06-15 15:26 | XMS_ITS | Encounter Summary ---
Author Organization [employer] Address [address] [place] [address] 7t [place] [address] Care Team Providers Care Venetian Blind Tape Cutter Name Role Phone Name, Shar JEFFREY Primary Care Provider [phone] Reason for Visit * Reason Onset Date Comments Nurse Triage 10/06/2022 Encounter Details Date Type Department Care Team (Late st Contact Info) Description 10/06/2022 Telephone [facility] MEDICINE [address] [place], [place] [phone] Name, MD Shar [address] [place] [address] Nurse Triage Social History Tobacco Use Types Packs/Day Years [...] AM EDT documented as of this encounter Miscellaneous Notes * Telephone Encounter - Krystal Robles RN - 10/07/2022 2:41 PM EDT Noted. * Telephone Encounter - Robyn Romero RN - 10/06/2022 11:11 AM EDT Call to Carla Stark, reports having dizziness and nausea x 1 hour ago. Per pt denies any vomiting.Pt having dizziness, SOB and and diaphoresis. Per pt was of sudden onset. Per pt unsure if related to grief of recent loss of son. Pt also then states is due to have surgery to remove a mass on her ovary. Pt advised of disposition per protocol. Pt agrees to go to ER now for assessment of new sx. Will call back for follow up after ER visit. Sent to team for status check PRN. Protocol Used: Dizziness (Adult) Protocol-Based Disposition: Go to ED/UCC Now (or to Office with PCP Approval) Positive Triage Questions: * Severe dizziness (e.g., unable to stand, requires support to walk, feels like passing out now) * Spinning or tilting sensation (vertigo) present now and one or more stroke risk factors (i.e., hypertension, diabetes mellitus, prior stroke/TIA, heart attack, age over 60) (Exception: prior physician evaluation for this AND no different/worse than usual) * All higher-acuity triage questions were negative Care Advice Discussed: * Reasons To Call Back - After 2 hours of rest and fluids and still feeling dizzy. - Passes out (faints). - You become worse. * Telephone Encounter - Jayant Lopez - 10/06/2022 11:05 AM EDT Symptoms: Nausea But No Vomiting, Dizziness Outcome: Schedule an urgent appointment (within 4 hours) or talk to a nurse or provider soon Reason: Getting worse The caller accepted this outcome Please contact pt at [phone] documented in this encounter Plan of Treatment Upcoming Encounters Date Type Department Care Team (Late st Contact Info) Description 06/22/2024 9:00 AM EST Office Visit [facility] OPTOMETRY [address] [place] [address], [place] [address] Lety Govea, OD [address] [place] [address] 06/22/2024 10:00 AM EST Office Visit [facility] ADULT DENTAL [address] [place] [address] SierraVivek saunders DDS [address] [place] [address] 06/29/2024 9:15 AM EST Office Visit [facility] MEDICINE [address] [place] [address] Michael Grace MD [address] [place] [address] 08/24/2024 10:30 AM EDT Office Visit [address] [address] Name, MD Shar [address] [place] [address] 12/05/2024 10:00 AM EDT Office Visit [facility] ADULT DENTAL [address] [place] [address] WyattValentina [address] [place] [address] documented as of this encounter Visit Diagnoses Not on filedocumented in this encounter Care Teams Venetian Blind Tape Cutter Relationship Specialty Start Date End Date Name, MD Shar [address] [place] [address] PCP - General Family Medicine 03/22/16 documented as of this encounter
--- OUTSIDE RECORDS SUMMARY | 2024-06-15 15:26 | XMS_ITS | Encounter Summary ---
Author Organization [employer] Address [address] [facility] 7t [place] [address] Care Team Providers Care Team Otr Truck Driver Name Role Phone Name, Shar JEFFREY Primary Care Provider [phone] Reason for Visit * Reason Comments Routine Cleaning Pt registered 13 min utes late to her 10 am appoint. Dental Exam x-rays Encounter Details Date Type Department Care Team (Late st Contact Info) Description 06/01/2024 10:00 AM EST Office Visit [facility] ADULT DENTAL [address] [place] [address] Puneet Schneideraris [address] [place] [address] Dental calculus (Primary Dx); Localized gingival recession; Abfraction; Tooth sensitivity Social History Tobacco Use Types Packs/Day Years Used Date Smoking Tobacco: Every Day Cigarettes Passive Smoke Exposure: Current Smokeless Tobacco: Never Alcohol Use Standard Drinks/Week [...] the past 12 months, has t he Missingames, gas, oil or water DrAvailable threatened to shut off services in your home? No 02/16/2023 Depression Answer Date Recorded Patient Health Questionnaire-2 Score 6 08/19/2023 Comments Unknown Sex and Gender Information Value Date Recorded Sex Assigned at Female 02/22/2022 10:28 AM EDT Legal Sex Female 10:28 AM EDT Gender Identity Female 02/22/2022 10:28 AM EDT Sexual Orientation Straight 02/22/2022 10 :28 AM EDT documented as of this encounter Last Filed Vital Signs Vital Sign Reading Time Taken Comments Blood Pressure 118/72 06/01/2024 10:14 AM EST Pulse - - Temperature - - Respiratory Rate - - Oxygen Saturation - - Inhaled Oxygen Concentration - - Weight - - Height - - Body Mass Index - - documented in this encounter Progress Notes * Valentina Schneider - 06/01/2024 10:00 AM EST Patient ID: Carla Stark is a 48 y.o. female. Time Out: Timeout Date: 06/01/24, Timeout Time: 1018 (P. exam, x-rays prophy perio chart) Location: [facility] Tooth: Maxilla and Mandible Procedure: Exam, X-rays, Prophylaxis, and Perio chart Verified the above with patient, credit assistant, and provider. Confirmed via patient's chart, intraorally and by radiographs. Mill Set Up: not applicable Medical Hx: Vitals: Blood pressure 118/72. Medications, Med Hx reviewed with patient and updated in chart. Treatment Provided Dental procedures in this visit D1110 - PROPHYLAXIS - ADULT (Completed) Service provider: Valentina Schneider Billing provider: Vivek Esquivel DDS D0274 - BITEWINGS - 4 RADIOGRAPHIC IMAGES (Completed) Service provider: Valentina Schneider Billing provider: Vivek Esquivel DDS D1330 - ORAL HYGIENE INSTRUCTIONS (Completed) Service provider: Valentina Schneider Billing provider: Vivek Esquivel DDS Instruments Used: Ultrasonic Scalers and Prophy angle Fluoride: N/A Oral Cancer Screening: No lesions Head/Neck Exam: No Lesions Calculus: Light Plaque: Light Stain: Light Bleeding: Light Gingiva: Recession- localized and magenta/pink OH: Fair Perio Chart: Completed Recession with hypersensitivity. Oral hygiene instructions provided to patient including brushing technique and flossing. Recommendations: Vernon two times daily, modified sethi technique, Floss daily, Electric toothbrush, Soft bristle toothbrush, Vernon Tongue, Anti-sensitivity toothpaste Recall Frequency: 6 mo 6 months prpophy, If Pt decides to see a fire watcher Pt to call to cancel the 6 months appoint until the specialist has completed TX and gives the OK to get regular maintenance prophys. Pt is in terested in getting ortho TX too. NV: Dr. Esquivel for Restorations. Hygienist: Valentina Schneider RDH * Vivek Esquivel DDS - 06/01/2024 10:00 AM EST Images from the original note were not included. Chief Complaint(s) - I am not happy with the appearance of my teeth. There are gaps between my teeth. Soft and Hard tissue findings- Negative; Head and Neck exam- No abnormal findings. TMJ/Occlusal - TMJ is within normal limits. The patient presents with multiple missing teeth and exhibits gingival recession on several teeth. Upper and lower central incisors are flared, with a midline diastema noted between #8 and #9. Tooth #2 is supra-erupted. The patient is not interested in replacing the missing teeth. A referral to a fire watcher and client advisor was recommended due to the presence of an anterior traumatic bite, gapsin upper and lower front teeth and patient's interest in having her teeth aligned. The patient was advised to contact her insurance provider regarding the referrals. She reported brushing aggressively with a hard-bristled toothbrush, contributing to cervical abrasions on multiple teeth. Proper brushing techniques were reviewed, and she was instructed to switch toa very soft-bristled toothbrush. Treatment options for tooth replacement were also discussed. Additionally, the amalgam restorations on #14 and #15 showed signs of deterioration. Replacement ofthese restorations was recommended. Oral Cancer Risk - Low. Caries Risk - High; Perio Risk - High; Generalized moderate gingival recession. Risks/CC Addressed - Yes; Oral Hygiene Instruction Provided - Yes Referrals - None * Vivek Esquivel DDS - 06/01/2024 10:00 AM EST Images from the original note were not included. Comprehensive clinical and radiographic periodontal examination and charting review. Periodontal disease - type III Reviewed perio diagnosis, restorative treatment plan, dental charting, occlusion and oral cancer screening. Patient is aware that periodontal disease is a progressive non-curable disease. All treatment efforts are designed to preserve the dentition as long as possible. documented in this encounter Plan of Treatment Upcoming Encounters Date Type Department Care Team (Late st Contact Info) Description 06/22/2024 9:00 AM EST Office Visit [facility] OPTOMETRY [address] [place] [address] Lety Govea, OD [address] [place] [address] 06/22/2024 10:00 AM EST Office Visit [facility] ADULT DENTAL [address] [place] [address] Vivek Esquivel DDS [address] [place] [address] 06/29/2024 9:15 AM EST Office Visit [facility] MEDICINE [address] [place] [address] Michael Grace MD [address] [place], [place] [phone] 08/24/2024 10:30 AM EDT Office Visit [facility] MEDICINE [address] [place] [address] Name, MD Shar [address] [place] [address] 12/05/2024 10:00 AM EDT Office Visit [facility] ADULT DENTAL [address] [place] [address] Valentina Schnedier [address] [place] [address] Scheduled Orders Name Type Priority Associated Diagnoses Orde r Schedule 15 BERONICA 15 BERONICA RESTORATIVE - RESIN-BASED COMPOSITE RESTORATIONS - DIRECT - RESIN-BASED COMPOSITE - THREE SURFACES, POSTERIOR Dental Routine [address] arting 06/01/2024 14 BERONICA 14 BERONICA RESTORATIVE - RESIN-BASED COMPOSITE RESTORATIONS - DIRECT - RESIN-BASED COMPOSITE - THREE SURFACES, POSTERIOR Dental Routine [address] arting 06/01/2024 20 O 20 O RESTORATIVE - RESIN-BASED COMPOSITE RESTORATIONS - DIRECT - RESIN-BASED COMPOSITE - ONE SURFACE, POSTERIOR Dental Routine 1 Occurr ences starting 06/01/2024 11 F(V) 11 F(V) RESTORATIVE - RESIN-BASED COMPOSITE RESTORATIONS - DIRECT - RESIN-BASED COMPOSITE - ONE SURFACE, ANTERIOR Dental Routine [address] arting 06/01/2024 5 B(V) 5 B(V) RESTORATIVE - RESIN-BASED COMPOSITE RESTORATIONS - DIRECT - RESIN-BASED COMPOSITE - ONE SURFACE, POSTERIOR Dental Routine 1 Occurr ences starting 06/01/2024 4 B(V) 4 B(V) RESTORATIVE - RESIN-BASED COMPOSITE RESTORATIONS - DIRECT - RESIN-BASED COMPOSITE - ONE SURFACE, POSTERIOR Dental Routine 1 Occurr ences starting 06/01/2024 ORAL HYGIENE INSTRUCTIONS Dental Routine 1 Occurrences starting 06/01/2024 ADJUNCTIVE GENERAL SERVICES - PROFESSIONAL VISITS - CASE PRESENTATION, SUBSEQUENT TO DETAILED AND EXTENSIVE TREATMENT PLANNING Dental Routine 1 Occurrence s starting 06/01/2024 documented as of this encounter Procedures Procedure Name Priority Date/Time Associated Diagnosis Comments PROPHYLAXIS - ADULT Routine 06/01/2024 1 0:00 AM EST Dental calculus PERIODIC ORAL EVALUATION - ESTABLISHED PATIENT Routine 06/01/2024 10:00 AM EST ORAL HYGIENE INSTRUCTIONS Routine 06/01/2024 10:00 AM EST Dental calculus Localized gingival recession CASE PRESENTATION, DETAILED AND EXTENSIVE TREATMENT PLANNING Routine 06/01/2024 10:00 AM EST BITEWINGS - 4 RADIOGRAPHIC IMAGES Routine 06/01/2024 10:00 AM EST Dental calculus Localized gingival recession documented in this encounter Visit Diagnoses Diagnosis Dental calculus- Primary Accretions on teeth Localized gingival recession Gingival recession, localized Abfraction Tooth sensitivity Other specified diseases of hard tissues of teeth documented in this encounter Additional Health Concerns Assessment Noted Time PHQ-9 Depression Total Score: 17 024 9:32 AM EDT documented as of this encounter Care Teams Team Otr Truck Driver Relationship Specialty Start Date End Date Name, MD Shar [address] [place] [address] PCP - General Family Medicine 03/22/16 documented as of this encounter
== END 2024-06-15 15:23 | disposition home or self-care (01) ==
LOC: HO.MAMMO 15:22
PROVIDERS: PCP Internal Medicine Geriatric Medicine; Visit Provider Internal Medicine Geriatric Medicine
DX: Z12.31 Encounter for screening mammogram for malignant neoplasm of breast (principal)
CPT/HCPCS: 77063; 77067

== ENCOUNTER → 2024-06-15 16:00 | Outpatient (BNV) | payer OTHER, SELFPAY | PROVIDERS: PCP Internal Medicine Geriatric Medicine; Visit Provider Internal Medicine | DX: Z12.31 Encounter for screening mammogram for malignant neoplasm of breast (principal) | CPT/HCPCS: 77063; 77067 ==

== ENCOUNTER 2024-06-20 15:27 | Outpatient (REF) | payer OTHER, SELFPAY ==
--- OUTSIDE RECORDS SUMMARY | 2024-06-20 19:34 | XMS_ITS | Encounter Summary ---
Author Organization [employer] Address [address] [place] [address] 7[address] [place] [address] Care Team Providers Care Volunteer Services Assistant Name Role Phone Name, Shar JEFFREY Primary Care Provider [phone] Encounter Details Date Type Department Care Team (Late st Contact Info) Description 01/19/2023 Orders Only [facility] [address] [place] [address] Provider, MD Nereyda Social History Tobacco Use [...] Description 06/22/2024 9:00 AM EST Office Visit [facility] [address] [place] [address] Lety Govea, OD [address] [place] [address] 06/22/2024 10:00 AM EST Office Visit [facility] [address] [place] [address] Vivek Esquivel DDS [address] [place] [address] 06/29/2024 9:15 AM EST Office Visit [facility] [address] [place] [address] Michael Grace MD [address] [place] [address] 08/24/2024 10:30 AM EDT Office Visit [facility] [address] [place] [address] NameShar MD [address] [place] [address] 12/05/2024 10:00 AM EDT Office Visit [facility] [address] [place] [address] Puneet Schneideraris [address] [place] [address] documented as of this encounter Procedures Procedure [...] documented as of this encounter Care Teams Volunteer Services Assistant Relationship Specialty Start Date End Date Name, [place] [address] PCP - General Family Medicine 03/22/16 documented as of this encounter
--- OUTSIDE RECORDS SUMMARY | 2024-06-20 19:34 | XMS_ITS | Encounter Summary ---
Author Organization [employer] Address [address] [facility] 7t [place] [address] Care Team Providers Care Facilities Management Executive Name Role Phone Name, Shar JEFFREY Primary Care Provider [phone] Reason for Visit * Reason Onset Date Comments returning phone call 06/15/2022 Encounter Details Date Type Department Care Team (Late st Contact Info) Description 06/15/2022 Telephone [facility] [address] [place], [place] [phone] Name, MD Shar [address] [place] [address] returning phone call Social History Tobacco Use [...] returning Phone call. Please contact pt at [phone] documented in this encounter Plan of Treatment Upcoming Encounters Date Type Department Care Team (Late st Contact Info) Description 06/22/2024 9:00 AM EST Office Visit [facility] [address] [place] [address] Lety Govea, OD [address] [place] [address] 06/22/2024 10:00 AM EST Office Visit [facility] [address] [place] [address] Vivek Esquivel, LUISS [address] [place] [address] 06/29/2024 9:15 AM EST Office Visit [facility] [address] [place] [address] Michael Grace MD [address] [place] [address] 08/24/2024 10:30 AM EDT Office Visit [facility] [address] [place] [address] Name, MD Shar [address] [place] [address] 12/05/2024 10:00 AM EDT Office Visit [facility] [address] [place] [address] Valentina Schneider [address] [place] [address] documented as of this encounter Visit Diagnoses Not on filedocumented in this encounter Care Teams Facilities Management Executive Relationship Specialty Start Date End Date Name, MD Shar [address] [place] [address] PCP - General Family Medicine 03/22/16 documented as of this encounter
--- OUTSIDE RECORDS SUMMARY | 2024-06-20 19:34 | XMS_ITS | Clinical Summary ---
Author Organization [employer] Address [address] [place] [address] 7t [place] [address] Care Team Providers Care Club Former Name Role Phone Name, Shar JEFFREY Primary Care Provider [phone] Allergies Active Allergy Reactions Criticality Noted Date [...] Description 06/01/2024 10:00 AM EST Office Visit [facility] ADULT DENTAL [address] [place] [address] Valentina Schneider Dental calculus (Primary Dx); Localized gingival recession; Abfraction; Tooth sensitivity 05/04/2024 10:30 AM EST Office Visit [address] [address] Michael Grace MD Palmoplantar pustulosis; 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 Travel 05/02/2024 Orders Only GENERIC EXTERNAL DATA DEPARTMENT Provider, Generic External Data 04/23/[address] [address] [place] june recalls 04/16/[address] [address] Francisca Thompson RN 04/06/2024 1:45 PM EST Office Visit [address] [address] Michael Grace MD Palmoplantar pustulosis (Primary Dx); 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 04/06/2024 Orders Only GENERIC EXTERNAL DATA DEPARTMENT Provider, Generic External Data 04/06/[address] [address] Arsenio, MD Shar Appointment Request 04/06/2024 Travel 03/26/2024 7:00 PM EST Office Visit [facility] WALK-IN CENTER [address] [place] [address] Aldo Carbajal MD Palmoplantar pustulosis from Last [...] Description 06/22/2024 9:00 AM EST Office Visit [facility] OPTOMETRY [address] [place] [address] Jeferson, Lety, OD [address] [place] [address] 06/22/2024 10:00 AM EST Office Visit [facility] ADULT DENTAL [address] [place] [address] Vivek Esquivel DDS [address] [place] [address] 06/29/2024 9:15 AM EST Office Visit [facility] MEDICINE [address] [place] [address] Michael Grace MD [address] [place] [address] 08/24/2024 10:30 AM EDT Office Visit [facility] MEDICINE [address] [place] [address] Name, MD Shar [address] [place] [address] 12/05/2024 10:00 AM EDT Office Visit [facility] ADULT DENTAL [address] [place] [address] Valentina Schneider [address] [place] [address] Health Maintenance Due Date Last Done Comments [...] Routine 05/07/2022 11:00 AM EST HIV ANTIBODY/ANTIGEN (IA DPH) Routine 04/08/2022 11:31 AM EST ZZZ HISTORICAL HPV E6/E7 RFLX SABAS 16 Routine 01/15/2021 2:26 PM EDT HM PAP/HPV Routine 01/15/2021 from Last 3 Months or Most Recently Relevant to Health Maintenance Results * TSH (05/02/2024 8:23 AM EST) Thyroid Stimulating Hormone 0.53 0.32 - 4.0 uIU/mL [facility] Comment:TSH 3rd Generation ( [employer]) 05/02/2024 8:23 AM EST 05/02/2024 8:23 AM EST us Generic External Data Provider LAB BLOOD ORDERAB LES Final Result [facility] [address] [place] [phone] * Gross and Microscopic Level 4 (04/06/2024 12:16 PM EST) 04/06/2024 12:1 6 PM EST 04/09/2024 6:36 AM EST Narrative [facility] - 04/11/2024 9:44 AM EST ----- ------- Name: Laura Stark ? Age/Sex: 48/F ? : 1975 Unit#: [id number] ?? Attend Dr: Carla Bruce CNM ?Re04/06/24 ?Status: DEP REF ? Location: HO.LNP ?Disch: ? ----- ------- SPEC : [id number] ? RECD: 04/09/24 ? STATUS: ??SOUT ? REQ NUM: [id number] ? RUTH: 04/06/24-1215 ? SUBM DR: Carla [...] Copies To: ?? Carla Bruce CNM ?? [facility] ?? [address] ?? [place] [address] ?? [phone] ?? Name,Shar JEFFREY ?? [address] ?? [place] [address] ?? [phone] ----- ------- Signed (signature on file) Raul Suggs MD 04/11/24 0944 ? ----- ------- ? END OF REPORT ? Generic External Data Provider LAB CYTOLOGY ORDE RABLES Final Result Performing Organization Address [facility] de Phone Number [facility] [address] [place] [address] [phone] * Hepatitis A,B,C Profile (02/10/2024 10:30 AM EDT) Pathologist [facility] Hepatitis A IgM Nonreactive Nonreactive [facility] Comment:IgM antibodies to [place] V not detected; does not exclude earlyacute or recovered HAV infection. ~Hepatitis B Surface Antibody REACTIVE Nonreactive [facility] Comment:REACTIVE: > 11.99 mI U/mL Hepatitis B Core Antibody Nonreactive Nonreactive [facility] Hepatitis C Antibody Nonreactive Nonreactive [facility] Comment:Antibodies to HCV no t detected; does not exclude early acuteHCV infection. Hepatitis B Surface Ag Negative Negative [facility] Blood Venous blood specimen / Unknown 02/10/2024 10:30 AM EDT 02/10/2024 12:02 PM EDT Michael Grace MD LAB BLOOD ORDERABLES Final Re sult Performing Organization Address [facility] Phone Number [facility] [address] [place] [address] [phone] * (ABNORMAL) Lipid Panel, Standard (07/19/2023 9:14 AM EDT) Triglycerides 83 <150 mg/dL [facility] Comment:Desirable Triglyceri de: less than 150 mg/dLBorderline High Triglyceride 150-199 mg/dLHigh Triglyceride: 200-499 mg/dLVery High Triglyceride: greater than or equal to 5OO mg/dL Cholesterol 188 <200 mg/dL [facility] Comment:Desirable Cholestero l: less than 200 mg/dLBorderline High Cholesterol: 200-239 mg/dLHigh Cholesterol: greater than 239 mg/dL LDL Cholesterol Calculated 131(H) <100 mg/dL [facility] Comment:Desirable LDL: less than 100 mg/dLNear Optimal/Above Optimal LDL: 110- 129 mg/dLBorderline High LDL: 130-159 mg/dLHigh LDL: 160-189 mg/dLVery High LDL: greater than or equal to 190 mg/dL HDL Cholesterol 41 >40 mg/dL [facility] Comment:Desirable HDL: great er than 40 mg/dL Note: This HDL assay may give artificially low results in patients with liver disease. Blood Venous blood specimen / Unknown 07/19/2023 9:14 AM EDT 07/19/2023 11:53 AM EDT us Shar Name MD LAB BLOOD ORDERABLES Final Resul t Performing Organization Address City/State/[facility] Co de Phone Number [facility] [address] [place] [address] [phone] * BI Mammogram Screening Tomosynthesis Bilateral (06/10/2023 4:15 PM EST) Anatomical Region Laterality Modality Breast Bilateral Mammography 06/10/2023 4:15 PM EST Narrative 06/23/2023 7:29 PM EST ? [facility] [place] ? [address] ?[place] [address] ? Mammography Report ? Signed ? Patient: Mi,Laura ?MR#: [id number] ?? [id number] ? : 1975 ?Acct:[id number] ? Age/Sex: 48 / F ?ADM Date: 02/16/24 ? Loc: HO.MAMMO ? Attending : Shar Cesar MD ? Ordering Physician: Name,Shar JEFFREY ?Results: 1Negative ? Date of Service: 06/10/23 ?Follow Up: 1 Year From Orig ?? inal Mammogram ? Procedure(s): MM tomosynthesis screening BI ?? Accession Number(s): [id number] ? cc: Name,Shar JEFFREY ? EXAMINATION: ?? [...] ? DD/DT: 06/10/ 1615 ? TD/TT: ? News Assistant: ? Procedure Note Donotuseinterpreter, Image - 06/23/2023 [facility] [address] [place] [address] Mammography Report Signed Patient: Laura StarkMR#: [id number] : 1975Acct:[id number] Age/Sex: 48 / FADM Date: 06/10/23 Loc: HO.MAMMO Attending Dr: Shar Cesar MD Ordering Physician: Shar Cesar MDResults: 1Negative Date of Service: 06/10/23Follow Up: 1 Year From Orig inal Mammogram Procedure(s): MM tomosynthesis screening BI Accession Number(s): [id number] cc: Shar Cesar MD EXAMINATION: MM SCREENING [...] in OV> 06/23/23 1926 DD/ 1615 TD/TT: News Assistant: Shar Cesar MD IM BI PROCEDURES Final Result * HIV Ab/Ag (GENNARO CASTILLO) (04/08/2022 11:31 AM EST) HIV AB/AG Nonreactive Nonreactive [facility] Comment:HIV-1 p24 Ag and/or HIV-1/HIV-2 Ab not detected.A test result that is nonreactive does not exclude thepossibility of exposure to or infection with HIV-1 and/orHIV-2. Nonreactive results in this assay for individualswith prior exposure to HIV-1 and/or HIV-2 may be due toantigen and antibody levels that are below the limit ofdetection of this assay.The [employer] HIV Ag/Ab Combo assay result andsupplemental assay results should be interpreted inconjunction with the patient's clinical presentation,history and other laboratory results. If the results areinconsistent with clinical evidence, additional testing issuggested to confirm the result. 04/08/2022 11:3 1 AM EST 04/08/2022 11:31 AM EST us [facility] External Provider LAB BLO OD ORDERABLES Final Result [facility] [address] [place] [phone] * HPV E6/E7 RFLX SABAS 16 18/45 (01/15/2021 2:26 PM EDT) HPV 16 RNA TNP [facility] HPV 18/45 RNA [facility]NP [facility] HPV E6 E7 ADD TNP [facility] HPV mRNA E6/E7 rflx Not Detected Not Detected [facility] Comment: Methodology: Needle Straightener-Mediated Amplification This assay detects E6/E7 viral messenger RNA (mRNA) from 14 high-risk HPV types (16,18,31,33,35,39,45,51,52,56,58,59,66,68). The analytical performance characteristics of this assay have been determined by [employer]. The modifications have not been cleared or approved by the FDA. This assay has been validated pursuant to the CLIA regulations and is used for clinical purposes. For additional information, please refer to http://education.ThemBid.DeckDAQ/faq/GIN117b7 (This link if provided for information/ educational purposes only.) THIS TEST WAS PERFORMED AT: [employer] [address] [place], [place] ??[phone] RAMAN JOHNSON MD 01/15/2021 2:26 PM EDT Carla Bruce HISTORICAL/NON ORDERABLE LABS Fi nal Result [facility] [address] * Pap Smear (01/15/2021) Historical Provider HEALTH MAINTENANCE Final Result from Last 3 Months or Most Recently Relevant to Health Maintenance Insurance HSN PARTIAL DENTAL - HSN PARTIAL (MEDICAID) [facility] Address: [address] [address] Care Teams Club Former Relationship Specialty Start Date End Date Name, MD Shar [address] [place] [address] PCP - General Family Medicine 03/22/16
--- OUTSIDE RECORDS SUMMARY | 2024-06-20 19:34 | XMS_ITS | Encounter Summary ---
Author Organization [employer] Address [address] [facility] 7t [place] [address] Care Team Providers Care Childcare Teacher Name Role Phone Name, Shar JEFFREY Primary Care Provider [phone] Encounter Details Date Type Department Care Team (Latest Contact Info) Description 08/22/2020 Abstract [facility] CONVERSIONS Dental, Provider, DDS Social History [...] Description 06/22/2024 9:00 AM EST Office Visit [facility] OPTOMETRY [address] [place] [address] Jeferson, Lety, OD [address] [place] [address] 06/22/2024 10:00 AM EST Office Visit [facility] ADULT DENTAL [address] [place] [address] Vivek Esquivel, DDS [address] [place] [address] 06/29/2024 9:15 AM EST Office Visit [facility] MEDICINE [address] [place] [address] Michael Grace MD [address] [place] [address] 08/24/2024 10:30 AM EDT Office Visit [facility] MEDICINE [address] [place] [address] Name, MD Shar [address] [place] [address] 12/05/2024 10:00 AM EDT Office Visit [facility] ADULT DENTAL [address] [place] [address] WyattValentina [address] [place] [address] documented as of this encounter Visit Diagnoses Not on filedocumented in this encounter Care Teams Childcare Teacher Relationship Specialty Start Date End Date Name, MD Shar [address] [place] [address] PCP - General Family Medicine 03/22/16 documented as of this encounter
--- OUTSIDE RECORDS SUMMARY | 2024-06-20 19:34 | XMS_ITS | Encounter Summary ---
Author Organization [employer] Address [address] [facility] 7t [place] [address] Care Team Providers Care Pricing Consultant Name Role Phone Name, Shar JEFFREY Primary Care Provider Reason for Visit * Reason Comments Routine Cleaning Pt registered 13 min utes late to her 10 am appoint. Dental Exam x-rays Encounter Details Date Type Department Care Team (Late st Contact Info) Description 06/01/2024 10:00 AM EST Office Visit [facility] ADULT DENTAL [address] [place] [address] Puneet Schneideraris [address] [place] [address] Dental calculus (Primary Dx); Localized gingival recession; [...] the past 12 months, has t he [employer], gas, oil or water [employer] threatened to shut off services in your [...] (P. exam, x-rays prophy perio chart) Location: [facility] Tooth: Maxilla and Mandible Procedure: Exam, X-rays, Prophylaxis, and Perio chart Verified the above with patient, plumber's assistant, and provider. Confirmed via patient's chart, intraorally and by radiographs. Natural Sciences Department Chair: not applicable Medical Hx: Vitals: Blood pressure [...] patient including brushing technique and flossing. Recommendations: Riley two times daily, modified sethi technique, Floss daily, Electric toothbrush, Soft bristle toothbrush, Riley Tongue, Anti-sensitivity toothpaste Recall Frequency: 6 mo 6 months prpophy, If Pt decides to see a jewelry bench molder Pt to call to cancel the 6 [...] the missing teeth. A referral to a jewelry bench molder and set up technician was recommended due to the presence of [...] Description 06/22/2024 9:00 AM EST Office Visit [facility] OPTOMETRY [address] [place] [address] Lety Govea, OD [address] [place] [address] 06/22/2024 10:00 AM EST Office Visit [facility] ADULT DENTAL [address] [place] [address] Vivek Esquivel DDS [address] [place] [address] 06/29/2024 9:15 AM EST Office Visit [facility] MEDICINE [address] [place] [address] Michael Grace MD [address] [place], [place] [phone] 08/24/2024 10:30 AM EDT Office Visit [facility] MEDICINE [address] [place] [address] Name, MD Shar [address] [place] [address] 12/05/2024 10:00 AM EDT Office Visit [facility] ADULT DENTAL [address] [place] [address] Valentina Schneider [address] [place] [address] Scheduled Orders Name Type Priority Associated Diagnoses [...] documented as of this encounter Care Teams Pricing Consultant Relationship Specialty Start Date End Date Name, MD Shar [address] [place] [address] PCP - General Family Medicine 03/22/16 documented as of this encounter
--- OUTSIDE RECORDS SUMMARY | 2024-06-20 19:34 | XMS_ITS | Encounter Summary ---
Author Organization [employer] Address [address] [facility] 7t [place] [address] Care Team Providers Care Garden Consultant Name Role Phone Name, Shar JEFFREY Primary Care Provider [phone] Reason for Visit * Reason Comments Med Refill Encounter Details Date Type Department Care Team (Late st Contact Info) Description 10/02/2023 Refill [facility] MEDICINE [address] [place], [place] [phone] Name, MD Shar [address] [place] [address] Social History Tobacco Use Types Packs/Day Years [...] Description 06/22/2024 9:00 AM EST Office Visit [facility] OPTOMETRY [address] [place] [address] Jeferson, Lety, OD [address] [place] [address] 06/22/2024 10:00 AM EST Office Visit [facility] ADULT DENTAL [address] [place] [address] Vivek Esquivel DDS [address] [place] [address] 06/29/2024 9:15 AM EST Office Visit [facility] MEDICINE [address] [place] [address] Michael Grace MD [address] [place] [address] 08/24/2024 10:30 AM EDT Office Visit [facility] MEDICINE [address] [place] [address] Name, MD Shar [address] [place] [address] 12/05/2024 10:00 AM EDT Office Visit [facility] ADULT DENTAL [address] [place] [address] Wyatt, Valentina [address] [place] [address] documented as of this encounter Visit Diagnoses Not on filedocumented in this encounter Additional Health Concerns Assessment Noted Time PHQ-9 Depression Total Score: 17 024 9:32 AM EDT documented as of this encounter Care Teams Garden Consultant Relationship Specialty Start Date End Date Name, MD Shar [address] [place] [address] PCP - General Family Medicine 03/22/16 documented as of this encounter
--- OUTSIDE RECORDS SUMMARY | 2024-06-20 19:34 | XMS_ITS | Encounter Summary ---
Author Organization [employer] Address [address] [place] [address] 7t [place] [address] Care Team Providers Care Multimedia Designer Name Role Phone Name, Shar JEFFREY Primary Care Provider [phone] Reason for Visit * Reason Onset Date Comments Nurse Triage 10/06/2022 Encounter Details Date Type Department Care Team (Late st Contact Info) Description 10/06/2022 Telephone [facility] MEDICINE [address] [place], [place] [phone] Name, MD Shar [address] [place] [address] Nurse Triage Social History Tobacco Use Types [...] accepted this outcome Please contact pt at [phone] documented in this encounter Plan of Treatment Upcoming Encounters Date Type Department Care Team (Late st Contact Info) Description 06/22/2024 9:00 AM EST Office Visit [facility] OPTOMETRY [address] [place] [address], [place] [address] Lety Govea, OD [address] [place] [address] 06/22/2024 10:00 AM EST Office Visit [facility] ADULT DENTAL [address] [facility] [place] [address] SierraVivek saunders DDS [address] [place] [address] 06/29/2024 9:15 AM EST Office Visit [facility] MEDICINE [address] [place] [address] Michael Grace MD [address] [place] [address] 08/24/2024 10:30 AM EDT Office Visit [address] [address] Name, MD Shar [address] [place] [address] 12/05/2024 10:00 AM EDT Office Visit [facility] ADULT DENTAL [address] [place] [address] WyattValentina [address] [place] [address] documented as of this encounter Visit Diagnoses Not on filedocumented in this encounter Care Teams Multimedia Designer Relationship Specialty Start Date End Date Name, MD Shar [address] [place] [address] PCP - General Family Medicine 03/22/16 documented as of this encounter
[2024-06-20 21:25] LABS: Bacterial Vaginosis PCR NEGATIVE (Negative); Candida Group PCR NOT DETECTED (Not Detect); Candida glab krusei PCR NOT DETECTED (Not Detect); Trichomonas vaginalis PCR NOT DETECTED (Not Detect)
== END 2024-06-20 15:28 | disposition home or self-care (01) ==
LOC: HO.LAB 15:27
PROVIDERS: PCP Internal Medicine Geriatric Medicine; Visit Provider Advanced Practice Midwife
DX: N89.8 Other specified noninflammatory disorders of vagina (principal)
CPT/HCPCS: 81515

== ENCOUNTER 2024-06-20 15:27 | Outpatient (AMB) | payer OTHER, SELFPAY ==
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
[2024-06-20 15:29] VITALS: BP 110/70; BMI 28.7
--- OUTSIDE RECORDS SUMMARY | 2024-06-20 18:59 | XMS_ITS | Encounter Summary ---
Author Organization [employer] Address [address] [facility] 7t [place] [address] Care Team Providers Care Child Development Associate Teacher Name Role Phone Name, Shar JEFFREY Primary Care Provider [phone] Reason for Visit * Reason Onset Date Comments returning phone call 06/15/2022 Encounter Details Date Type Department Care Team (Late st Contact Info) Description 06/15/2022 Telephone [facility] MEDICINE [address] [place], [place] [phone] Name, MD Shar [address] [place] [address] returning phone call Social History Tobacco Use [...] returning Phone call. Please contact pt at [phone] documented in this encounter Plan of Treatment Upcoming Encounters Date Type Department Care Team (Late st Contact Info) Description 06/22/2024 9:00 AM EST Office Visit [facility] OPTOMETRY [address] [place] [address] Lety Govea, OD [address] [place] [address] 06/22/2024 10:00 AM EST Office Visit [facility] ADULT DENTAL [address] [place] [address] Vivek Esquivel, LUISS [address] [place] [address] 06/29/2024 9:15 AM EST Office Visit [facility] MEDICINE [address] [place] [address] Michael Grace MD [address] [place] [address] 08/24/2024 10:30 AM EDT Office Visit [facility] MEDICINE [address] [place] [address] Name, MD Shar [address] [place] [address] 12/05/2024 10:00 AM EDT Office Visit [facility] ADULT DENTAL [address] [place] [address] Valentina Schneider [address] [place] [address] documented as of this encounter Visit Diagnoses Not on filedocumented in this encounter Care Teams Child Development Associate Teacher Relationship Specialty Start Date End Date Name, MD Shar [address] [place] [id number] PCP - General Family Medicine 03/22/16 documented as of this encounter
--- OUTSIDE RECORDS SUMMARY | 2024-06-20 18:59 | XMS_ITS | Encounter Summary ---
Author Organization [employer] Address [address] [place] [address] 7t [place] [address] Care Team Providers Care Weblogic Administrator Name Role Phone Name, Shar JEFFREY Primary Care Provider [phone] Reason for Visit * Reason Onset Date Comments Nurse Triage 10/06/2022 Encounter Details Date Type Department Care Team (Late st Contact Info) Description 10/06/2022 Telephone [facility] MEDICINE [address] [place], [place] [phone] Name, MD Shar [address] [place] [address] Nurse Triage Social History Tobacco Use Types [...] accepted this outcome Please contact pt at [phone] documented in this encounter Plan of Treatment Upcoming Encounters Date Type Department Care Team (Late st Contact Info) Description 06/22/2024 9:00 AM EST Office Visit [facility] OPTOMETRY [address] [place] [address], [place] [address] Lety Govea, OD [address] [place] [address] 06/22/2024 10:00 AM EST Office Visit [facility] ADULT DENTAL 230 [place] [address] SierraVivek saunders DDS [address] [place] [address] 06/29/2024 9:15 AM EST Office Visit [facility] MEDICINE [address] [place] [phone] Michael Grace MD [address] [place] [address] 08/24/2024 10:30 AM EDT Office Visit [address] [address] Name, MD Shar [address] [place] [address] 12/05/2024 10:00 AM EDT Office Visit [facility] ADULT DENTAL [address] [place] [address] WyattValentina [address] [place] [address] documented as of this encounter Visit Diagnoses Not on filedocumented in this encounter Care Teams Weblogic Administrator Relationship Specialty Start Date End Date Name, MD Shar [address] [place] [id number] PCP - General Family Medicine 03/22/16 documented as of this encounter
--- OUTSIDE RECORDS SUMMARY | 2024-06-20 18:59 | XMS_ITS | Encounter Summary ---
Author Organization [employer] Address [address] [facility] 7t [place] [address] Care Team Providers Care Social Services Analyst Name Role Phone Name, Shar JEFFREY Primary Care Provider [phone] Reason for Visit * Reason Comments Med Refill Encounter Details Date Type Department Care Team (Late st Contact Info) Description 10/02/2023 Refill [facility] MEDICINE [address] [place], [place] [phone] Name, MD Shar [address] [place] [address] Social History Tobacco Use Types Packs/Day Years [...] Description 06/22/2024 9:00 AM EST Office Visit [facility] OPTOMETRY [address] [place] [address] Jeferson, Lety, OD [address] [place] [address] 06/22/2024 10:00 AM EST Office Visit [facility] ADULT DENTAL [address] [place] [address] Vivek Esquivel DDS [address] [place] [address] 06/29/2024 9:15 AM EST Office Visit [facility] MEDICINE [address] [place] [address] Michael Grace MD [address] [place] [address] 08/24/2024 10:30 AM EDT Office Visit [facility] MEDICINE [address] [place] [phone] Name, MD Shar [address] [place] [address] 12/05/2024 10:00 AM EDT Office Visit [facility] ADULT DENTAL [address] [place] [address] Wyatt, Valentina [address] [place] [address] documented as of this encounter Visit Diagnoses Not on filedocumented in this encounter Additional Health Concerns Assessment Noted Time PHQ-9 Depression Total Score: 17 024 9:32 AM EDT documented as of this encounter Care Teams Social Services Analyst Relationship Specialty Start Date End Date Name, MD Shar [address] [place] [address] PCP - General Family Medicine 03/22/16 documented as of this encounter
--- OUTSIDE RECORDS SUMMARY | 2024-06-20 18:59 | XMS_ITS | Encounter Summary ---
Author Organization [employer] Address [address] [facility] 7t [place] [address] Care Team Providers Care Take Up Supervisor Name Role Phone Name, Shar JEFFREY Primary Care Provider [phone] Encounter Details Date Type Department Care Team (Latest Contact Info) Description 08/22/2020 Abstract [facility] CONVERSIONS Dental, Provider, DDS Social History [...] Description 06/22/2024 9:00 AM EST Office Visit [facility] OPTOMETRY [address] [place] [address] Jeferson, Lety, OD [address] [place] [address] 06/22/2024 10:00 AM EST Office Visit [facility] ADULT DENTAL [address] [place] [address] Vivek Esquivel, DDS [address] [place] [address] 06/29/2024 9:15 AM EST Office Visit [facility] MEDICINE [address] [place] [address] Michael Grace MD [address] [place] [address] 08/24/2024 10:30 AM EDT Office Visit [facility] MEDICINE [address] [place] [phone] Name, MD Shar [address] [place] [address] 12/05/2024 10:00 AM EDT Office Visit [facility] ADULT DENTAL [address] [place] [address] WyattValentina [address] [place] [address] documented as of this encounter Visit Diagnoses Not on filedocumented in this encounter Care Teams Take Up Supervisor Relationship Specialty Start Date End Date Name, MD Shar [address] [place] [address] PCP - General Family Medicine 03/22/16 documented as of this encounter
--- OUTSIDE RECORDS SUMMARY | 2024-06-20 19:00 | XMS_ITS | Encounter Summary ---
Author Organization [employer] Address [address] [place] [address] 7t [place] [address] Care Team Providers Care Fleet Salesperson Name Role Phone Name, Shar JEFFREY Primary Care Provider [phone] Encounter Details Date Type Department Care Team (Late st Contact Info) Description 01/19/2023 Orders Only [facility] MEDICINE [address] [place] [address] Provider, MD Nereyda Social History Tobacco Use [...] Description 06/22/2024 9:00 AM EST Office Visit [facility] OPTOMETRY [address] [place] [address] Lety Govea, OD [address] [place] [address] 06/22/2024 10:00 AM EST Office Visit [facility] ADULT DENTAL [address] [place] [address] Vivek Esquivel DDS [address] [place] [address] 06/29/2024 9:15 AM EST Office Visit [facility] MEDICINE [address] [place] [address] Michael Grace MD [address] [place] [address] 08/24/2024 10:30 AM EDT Office Visit [facility] MEDICINE [address] [place] [phone] NameShar MD [address] [place] [address] 12/05/2024 10:00 AM EDT Office Visit [facility] ADULT DENTAL [address] [place] [address] Puneet Schneideraris [address] [place] [address] documented as of this encounter Procedures Procedure [...] documented as of this encounter Care Teams Fleet Salesperson Relationship Specialty Start Date End Date Name, [place] [address] PCP - General Family Medicine 03/22/16 documented as of this encounter
--- OUTSIDE RECORDS SUMMARY | 2024-06-20 19:00 | XMS_ITS | Clinical Summary ---
Author Organization [employer] Address [address] [place] [address] 7t [place] [address] Care Team Providers Care Play Writer Name Role Phone Name, Shar JEFFREY Primary Care Provider [phone] Allergies Active Allergy Reactions Criticality Noted Date [...] Description 06/01/2024 10:00 AM EST Office Visit [facility] [address] [place] [address] Valentina Schneider Dental calculus (Primary Dx); Localized gingival recession; Abfraction; Tooth sensitivity 05/04/2024 10:30 AM EST Office Visit [address] [address] Michael Grace MD Palmoplantar pustulosis; 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 Travel 05/02/2024 Orders Only GENERIC EXTERNAL DATA DEPARTMENT Provider, Generic External Data 04/23/[address] [address] [place] june recalls 04/16/[address] [address] Francisca Thompson RN 04/06/2024 1:45 PM EST Office Visit [address] [address] Michael Grace MD Palmoplantar pustulosis (Primary Dx); 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 04/06/2024 Orders Only GENERIC EXTERNAL DATA DEPARTMENT Provider, Generic External Data 04/06/[address] [address] Arsenio, MD Shar Appointment Request 04/06/2024 Travel 03/26/2024 7:00 PM EST Office Visit [facility] [address] [place] [address] Aldo Carbajal MD Palmoplantar pustulosis from Last 3 Months Immunizations Name Administration [...] Description 06/22/2024 9:00 AM EST Office Visit [facility] [address] [place] [address] Jeferson, Lety, OD [address] [place] [address] 06/22/2024 10:00 AM EST Office Visit [facility] [address] [place] [address] Vivek Esquivel DDS [address] [place] [address] 06/29/2024 9:15 AM EST Office Visit [facility] [address] [place] [address] Michael Grace MD [address] [place] [address] 08/24/2024 10:30 AM EDT Office Visit [facility] [address] [place] [address] Name, MD Shar [address] [place] [address] 12/05/2024 10:00 AM EDT Office Visit [facility] [address] [place] [address] Valentina Schneider [address] [place] [address] Health Maintenance Due Date Last Done Comments [...] LEVEL 4 Routine 04/06/2024 12:16 PM EST HEPATITIS PANEL, GENERAL Routine 02/10/2024 10:30 AM EDT Palmoplantar pustulosis LIPID PANEL, STANDARD Routine 07/19/2023 9:14 AM EDT Screening for cholesterol level BI MAMMOGRAM SCREENING TOMOSYNTHESIS BILATERAL Routine 06/10/2023 4:15 PM EST INTRAORAL - COMPLETE SERIES OF RADIOGRAPHIC IMAGES Routine 05/07/2022 11:00 AM EST HIV ANTIBODY/ANTIGEN ([place] [facility]) Routine 04/08/2022 11:31 AM EST ZZZ HISTORICAL HPV E6/E7 RFLX SABAS 16 Routine 01/15/2021 2:26 PM EDT HM PAP/HPV Routine 01/15/2021 from Last 3 Months or Most Recently Relevant to Health Maintenance Results * TSH (05/02/2024 8:23 AM EST) Thyroid Stimulating Hormone 0.53 0.32 - 4.0 uIU/mL [facility] Comment:TSH 3rd Generation ( [facility]) 05/02/2024 8:23 AM EST 05/02/2024 8:23 AM EST us Generic External Data Provider LAB BLOOD ORDERAB LES Final Result [facility] [address] [place] [phone] * Gross and Microscopic Level 4 (04/06/2024 12:16 PM EST) 04/06/2024 12:1 6 PM EST 04/09/2024 6:36 AM EST Narrative [facility] - 04/11/2024 9:44 AM EST ----- ------- Name: Laura Stark ? Age/Sex: 48/F ? : 1975 Unit#: [id number] ?? Attend Dr: Carla Bruce CNM ?Re04/06/24 ?Status: DEP REF ? Location: HO.LNP ?Disch: ? ----- ------- SPEC : [id number] ? RECD: 04/09/24 ? STATUS: ??SOUT ? REQ NUM: [id number] ? RUTH: 04/06/24-1215 ? SUBM DR: Carla Bruce CNM ? ENTERED: ??04/09/24 ?SP TYPE: Surgical ? OTHR DR: Name,Shar JEFFREY ? ORDERED: ??Gross Micro L4 ? Diagnosis [...] Copies To: ?? Carla Bruce CNM ?? [facility] ?? [address] ?? [place] [address] ?? [phone] ?? Name,Shar JEFFREY ?? [address] [facility] ?? [place] [address] ?? [phone] ----- ------- Signed (signature on file) Raul Suggs MD 04/11/24 0944 ? ----- ------- ? END OF REPORT ? Generic External Data Provider LAB CYTOLOGY ORDE RABLES Final Result Performing Organization Address [facility] de Phone Number [facility] [address] [place] [phone] [phone] * Hepatitis A,B,C Profile (02/10/2024 10:30 AM EDT) Pathologist [facility] Hepatitis A IgM Nonreactive Nonreactive [facility] Comment:IgM antibodies to [place] V not detected; does not exclude earlyacute or recovered HAV infection. ~Hepatitis B Surface Antibody REACTIVE Nonreactive [facility] Comment:REACTIVE: > 11.99 mI U/mL Hepatitis B Core Antibody Nonreactive Nonreactive [facility] Hepatitis C Antibody Nonreactive Nonreactive [facility] Comment:Antibodies to HCV no t detected; does not exclude early acuteHCV infection. Hepatitis B Surface Ag Negative Negative [facility] Blood Venous blood specimen / Unknown 02/10/2024 10:30 AM EDT 02/10/2024 12:02 PM EDT Michael Grace MD LAB BLOOD ORDERABLES Final Re sult Performing Organization Address [facility] Phone Number [facility] [address] [place] [phone] * (ABNORMAL) Lipid Panel, Standard (07/19/2023 9:14 AM EDT) Triglycerides 83 <150 mg/dL [facility] Comment:Desirable Triglyceri de: less than 150 mg/dLBorderline High Triglyceride 150-199 mg/dLHigh Triglyceride: 200-499 mg/dLVery High Triglyceride: greater than or equal to 5OO mg/dL Cholesterol 188 <200 mg/dL [facility] Comment:Desirable Cholestero l: less than 200 mg/dLBorderline High Cholesterol: 200-239 mg/dLHigh Cholesterol: greater than 239 mg/dL LDL Cholesterol Calculated 131(H) <100 mg/dL [facility] Comment:Desirable LDL: less than 100 mg/dLNear Optimal/Above Optimal LDL: 110- 129 mg/dLBorderline High LDL: 130-159 mg/dLHigh LDL: 160-189 mg/dLVery High LDL: greater than or equal to 190 mg/dL HDL Cholesterol 41 >40 mg/dL [facility] Comment:Desirable HDL: great er than 40 mg/dL Note: This HDL assay may give artificially low results in patients with liver disease. Blood Venous blood specimen / Unknown 07/19/2023 9:14 AM EDT 07/19/2023 11:53 AM EDT us Shar Name MD LAB BLOOD ORDERABLES Final Resul t Performing Organization Address City/State/[facility] Co de Phone Number [facility] [address] [place] [address] [phone] * BI Mammogram Screening Tomosynthesis Bilateral (06/10/2023 4:15 PM EST) Anatomical Region Laterality Modality Breast Bilateral Mammography 06/10/2023 4:15 PM EST Narrative 06/23/2023 7:29 PM EST ? [facility] ? [address] ?[place] [address] ? Mammography Report ? Signed ? Patient: Mi,Laura ?MR#: [id number] ?? [id number] ? : 1975 ?Acct:[id number] ? Age/Sex: 48 / F ?ADM Date: 02/16/24 ? Loc: HO.MAMMO ? Attending : Shar Cesar MD ? Ordering Physician: Name,Shar JEFFREY ?Results: 1Negative ? Date of Service: 06/10/23 ?Follow Up: 1 Year From Orig ?? inal Mammogram ? Procedure(s): MM tomosynthesis screening BI ?? Accession Number(s): [id number] ? cc: Name,Shar JEFFREY ? EXAMINATION: ?? [...] by Ellen Kate MD in OV> ? / 1927 ? DD/DT: 06/10/ 1615 ? TD/TT: ? Newspaper Reporter: ? Procedure Note Donotuseinterpreter, Image - 06/23/2023 [facility] [address] [place] [address] Mammography Report Signed Patient: Laura StarkMR#: [id number] : 1975Acct:[id number] Age/Sex: 48 / FADM Date: 06/10/23 Loc: HO.MAMMO Attending Dr: Shar Cesar MD Ordering Physician: Shar Cesar MDResults: 1Negative Date of Service: 06/10/23Follow Up: 1 Year From Orig inal Mammogram Procedure(s): MM tomosynthesis screening BI Accession Number(s): [id number] cc: Shar Cesar MD EXAMINATION: MM SCREENING [...] in OV> 06/23/23 1926 DD/ 1615 TD/TT: Newspaper Reporter: Shar Cesar MD IM BI PROCEDURES Final Result * HIV Ab/Ag (GENNARO CASTILLO) (04/08/2022 11:31 AM EST) HIV AB/AG Nonreactive Nonreactive [facility] Comment:HIV-1 p24 Ag and/or HIV-1/HIV-2 Ab not detected.A test result that is nonreactive does not exclude thepossibility of exposure to or infection with HIV-1 and/orHIV-2. Nonreactive results in this assay for individualswith prior exposure to HIV-1 and/or HIV-2 may be due toantigen and antibody levels that are below the limit ofdetection of this assay.The [employer] HIV Ag/Ab Combo assay result andsupplemental assay results should be interpreted inconjunction with the patient's clinical presentation,history and other laboratory results. If the results areinconsistent with clinical evidence, additional testing issuggested to confirm the result. 04/08/2022 11:3 1 AM EST 04/08/2022 11:31 AM EST us [facility] External Provider LAB BLO OD ORDERABLES Final Result [facility] [address] [place] [phone] * HPV E6/E7 RFLX SABAS 16 18/45 (01/15/2021 2:26 PM EDT) HPV 16 RNA TNP [facility] HPV 18/45 RNA [facility]NP [facility] HPV E6 E7 ADD [facility]NP [facility] HPV mRNA E6/E7 rflx Not Detected Not Detected [facility] Comment: Methodology: Print Machine Operator-Mediated Amplification This assay detects E6/E7 viral messenger RNA (mRNA) from 14 high-risk HPV types (16,18,31,33,35,39,45,51,52,56,58,59,66,68). The analytical performance characteristics of this assay have been determined by [employer]. The modifications have not been cleared or approved by the FDA. This assay has been validated pursuant to the CLIA regulations and is used for clinical purposes. For additional information, please refer to http://education.First30Days.Cognovant/faq/FTT200f4 (This link if provided for information/ educational purposes only.) THIS TEST WAS PERFORMED AT: [facility] [facility] [address] [facility] [address] [place], [place] ??[phone] RAMAN JOHNSON MD 01/15/2021 2:26 PM EDT Carla Bruce HISTORICAL/NON ORDERABLE LABS Fi nal Result [facility] [address] * Pap Smear (01/15/2021) Historical Provider HEALTH MAINTENANCE Final Result from Last 3 Months or Most Recently Relevant to Health Maintenance Insurance HSN PARTIAL DENTAL - HSN PARTIAL (MEDICAID) [facility] Address: [address] [address] Care Teams Play Writer Relationship Specialty Start Date End Date Name, MD Shar [address] [place] [phone] PCP - General Family Medicine 03/22/16
--- OUTSIDE RECORDS SUMMARY | 2024-06-20 19:00 | XMS_ITS | Encounter Summary ---
Author Organization [employer] [facility] [employer] Address [address] [facility] 7t [place] [address] Care Team Providers Care Recycler Forklift Driver Truck Driver Name Role Phone Name, Shar JEFFREY Primary Care Provider [phone] Reason for Visit * Reason Comments Routine Cleaning Pt registered 13 min utes late to her 10 am appoint. Dental Exam x-rays Encounter Details Date Type Department Care Team (Late st Contact Info) Description 06/01/2024 10:00 AM EST Office Visit [facility] [address] [place] [address] Puneet Schneideraris [address] [place] [address] Dental calculus (Primary Dx); Localized gingival recession; [...] the past 12 months, has t he [employer], gas, oil or water [employer] threatened to shut off services in your [...] (P. exam, x-rays prophy perio chart) Location: [facility] Tooth: Maxilla and Mandible Procedure: Exam, X-rays, Prophylaxis, and Perio chart Verified the above with patient, photography assistant, and provider. Confirmed via patient's chart, intraorally and by radiographs. Field Service Rep: not applicable Medical Hx: Vitals: Blood pressure [...] patient including brushing technique and flossing. Recommendations: [place] two times daily, modified sethi technique, Floss daily, Electric toothbrush, Soft bristle toothbrush, [place] Tongue, Anti-sensitivity toothpaste Recall Frequency: 6 mo 6 months prpophy, If Pt decides to see a loom repairer Pt to call to cancel the 6 [...] the missing teeth. A referral to a loom repairer and professor of poultry science was recommended due to the presence of [...] - Yes Referrals - None * Vivek Esquviel DDS - 06/01/2024 10:00 AM EST Images [...] 9:00 AM EST Office Visit [facility] [address] [place] [address] Lety Govea, OD [address] [place] [address] 06/22/2024 10:00 AM EST Office Visit [facility] [address] [place] [address] Vivek Esquivel DDS [address] [place] [address] 06/29/2024 9:15 AM EST Office Visit [facility] [address] [place] [address] Michael Grace MD [address] [place], [place] [phone] 08/24/2024 10:30 AM EDT Office Visit [facility] [address] [place] [address] Name, MD Shar [address] [place] [address] 12/05/2024 10:00 AM EDT Office Visit [facility] [address] [place] [address] Valentina Schneider [address] [place] [address] Scheduled Orders Name Type Priority Associated Diagnoses [...] documented as of this encounter Care Teams Recycler Forklift Driver Truck Driver Relationship Specialty Start Date End Date Name, MD Shar [address] [place] [address] PCP - General Family Medicine 03/22/16 documented as of this encounter
== END 2024-06-20 16:22 | disposition home or self-care (01) ==
LOC: HO.HWS 15:27
PROVIDERS: PCP Internal Medicine Geriatric Medicine; Visit Provider Advanced Practice Midwife
DX: Z01.419 Encounter for gynecological examination (general) (routine) without abnormal findings (principal)
CPT/HCPCS: 99396; 99459

== ENCOUNTER 2024-11-23 10:35 | Outpatient (AMB) | payer OTHER, SELFPAY ==
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
--- OUTSIDE RECORDS SUMMARY | 2024-11-23 10:41 | XMS_ITS | Encounter Summary ---
Author Organization [employer] Address [address] [facility] [address] [place] [address] Care Team Providers Care Young Adult Librarian Name Role Phone Name, Shar JEFFREY Primary Care Provider Reason for Visit * Reason Onset Date Comments Nurse Triage 10/06/2022 Encounter Details Date Type Department Care Team (Late st Contact Info) Description 10/06/2022 Telephone [facility] [address] [place] [address] Name, MD Shar [address] [place] [address] Nurse Triage Social History Tobacco Use Types [...] Used: Dizziness (Adult) Protocol-Based Disposition: Go to ED/C Now (or to Office with PCP Approval) [...] accepted this outcome Please contact pt at [phone] documented in this encounter Plan of Treatment Upcoming Encounters Date Type Department Care Team (Late st Contact Info) Description 11/30/2024 10:30 AM EDT Office Visit [facility] [address] [place] [id number] Michael Grace MD [address] [place] [address] 12/05/2024 10:00 AM EDT Office Visit [facility] [address] [place], [place] [phone] Valentina Schneider [address] [place] [address] 01/11/2025 3:30 PM EDT Office Visit [facility] [address] [place] [address] Name, MD Shar [address] [place] [address] documented as of this encounter Visit Diagnoses Not on filedocumented in this encounter Care Teams Young Adult Librarian Relationship Specialty Start Date End Date Name, MD Shar [address] [place] [id number] PCP - General Family Medicine 03/22/16 documented as of this encounter
== END 2024-11-23 11:05 | disposition home or self-care (01) ==
LOC: HO.HPS 10:35
PROVIDERS: PCP Internal Medicine Geriatric Medicine; Referring Provider Internal Medicine Geriatric Medicine; Visit Provider Physician Assistant Medical
DX: F17.210 Nicotine dependence, cigarettes, uncomplicated (principal)
CPT/HCPCS: G0296

== ENCOUNTER 2024-11-23 10:53 | Outpatient (REF) | payer OTHER, SELFPAY ==
--- NOTE | ~2024-11-23 | CT_ITS ---
EXAMINATION: CT LOW-DOSE SCREENING CHEST WITHOUT CONTRAST CLINICAL INFORMATION: 49-year-old female, current smoker, 34 pack years, lung cancer screening. COMPARISON: None available. TECHNIQUE: Multidetector volumetric CT imaging of the chest is performed on a Siemens SOMATOM Definition scanner without contrast using low dose technique. Additional 2D coronal and sagittal reformatted images and axial 3D maximum intensity projection (MIP) images are generated on the CT workstation. This CT examination was performed using dose optimization techniques as appropriate, variously including the following: *Automated exposure control *Adjustment of mA and/or kV according to patient size (this includes techniques or standardized protocols for targeted exams where dose is matched to indication/reason for exam; i.e. extremities or head) *Use of iterative reconstruction technique FINDINGS: PULMONARY NODULES: There are no pulmonary nodules. LUNGS: The lungs are clear bilaterally and well expanded. No abnormal opacities or interstitial abnormalities. No pneumothorax or pleural effusion. Small airways have a normal appearance. Central airways are patent. MEDIASTINUM: Partially imaged thyroid is mildly prominent without definable nodule. No mediastinal lymphadenopathy or mass. Aorta is normal in caliber. Main pulmonary artery is normal in caliber. Heart size is normal. No pericardial effusion. Normal esophagus. CORONARY ARTERY CALCIFICATION: None visualized on this study. CHEST WALL/AXILLA: Unremarkable. UPPER ABDOMEN: Imaged upper abdominal contents are unremarkable. OSSEOUS STRUCTURES: No lytic or blastic bone lesions. CT/CT lung screening IMPRESSION: 1. There are no lung nodules present. 2. The lungs are clear without active disease. ASSESSMENT: 1. Lung-RADS Category 1: Negative. There are no nodules or there are definitely benign nodules. 2. Lung-RADS Category S: None. RECOMMENDATION: Continued routine annual low-dose CT lung screening in 1 year is recommended. An order for CT CHEST LOW DOSE CANCER SCREENING ([id number]) can be placed. Electronically signed by: Kareem Garrett MD 11/23/2024 11:47 AM EDT
== END 2024-11-23 10:54 | disposition home or self-care (01) ==
LOC: HO.CT 10:53
PROVIDERS: PCP Internal Medicine Geriatric Medicine; Visit Provider Physician Assistant Medical
DX: Z12.2 Encounter for screening for malignant neoplasm of respiratory organs (principal); F17.210 Nicotine dependence, cigarettes, uncomplicated
CPT/HCPCS: 71271; G0296

== ENCOUNTER → 2024-11-23 11:04 | Outpatient (BNV) | payer OTHER, SELFPAY | PROVIDERS: PCP Internal Medicine Geriatric Medicine; Visit Provider Radiology Diagnostic Radiology | DX: Z12.2 Encounter for screening for malignant neoplasm of respiratory organs (principal); Z87.891 Personal history of nicotine dependence | CPT/HCPCS: 71271 ==

== ENCOUNTER 2024-12-10 09:32 | Outpatient (REF) | payer OTHER, SELFPAY ==
--- OUTSIDE RECORDS SUMMARY | 2024-12-10 10:07 | XMS_ITS | Encounter Summary ---
Author Organization [employer] Address [address] [facility] [address] [place] [address] Care Team Providers Care Swing Grinder Name Role Phone Name, Shar JEFFREY Primary Care Provider [phone] Reason for Visit * Reason Onset Date Comments Nurse Triage 10/06/2022 Encounter Details Date Type Department Care Team (Late st Contact Info) Description 10/06/2022 Telephone [facility] [address] [place] [address] Name, MD Shar [address] [place] [address] Nurse Triage Social History Tobacco Use Types Packs/Day Years Used Date Smoking Tobacco: Every Day Cigarettes Passive Smoke Exposure: Never Smokeless Tobacco: Never Comments Unknown Sex and Gender Information Value Date Recorded Sex Assigned at Female 02/22/2022 10:28 AM EDT Legal Sex Female 10:28 AM EDT Gender Identity Female 02/22/2022 10:28 AM EDT Sexual Orientation Straight 02/22/2022 10 :28 AM EDT Travel History Travel Start Travel End [place] 11/07/2024 11/17/2024 documented as of this encounter Miscellaneous Notes [...] accepted this outcome Please contact pt at [phone] documented in this encounter Plan of Treatment Upcoming Encounters Date Type Department Care Team ([facility] st Contact Info) Description 01/11/2025 11:00 AM EDT Office Visit [facility] [address] [place] [address] Michael Grace MD [address] [place] [address] 01/11/2025 3:30 PM EDT Office Visit [facility] [address] [place] [address] Name, MD Shar [address] [place] [address] 01/29/2025 10:30 AM EDT Office Visit [facility] [address] [place] [address] Vivek Esquivel DDS [address] [place] [address] 06/17/2025 8:00 AM EST Office Visit [facility] [address] [place] [address] Valentina Schneider [address] [place] [address] documented as of this encounter Visit Diagnoses Not on filedocumented in this encounter Care Teams Swing Grinder Relationship Specialty Start Date End Date Name, [place] [address] PCP - General Family Medicine 03/22/16 documented as of this encounter
[2024-12-10 11:49] LABS: Cholesterol 210 mg/dL (<200); HDL Cholesterol 42 mg/dL (>40); Triglycerides 110 mg/dL (<150)
== END 2024-12-10 09:33 | disposition home or self-care (01) ==
LOC: HO.HHCL 09:32
PROVIDERS: PCP Internal Medicine Geriatric Medicine; Visit Provider Internal Medicine Geriatric Medicine
DX: Z13.6 Encounter for screening for cardiovascular disorders (principal)
CPT/HCPCS: 36415; 80061